=== PATIENT | male | born 1965 | race Caucasian/White ===

== ENCOUNTER 2021-07-07 18:35 | Emergency (ER) | payer MEDICAID, MEDICARE, OTHER ==
[~2021-07-07] VITALS: Ht 170.2 cm; Wt 106.8 kg
[~2021-07-07 18:35] MED LIST: ACIPHEX PO; ASTELIN NASAL; BEXTRA PO; CIALIS PO; CLARINEX PO; CLARITIN10 PO; COGE1INJ PO; COGENTIN PO; COMBIVENT INHALATION; GEOD20CA14; GEOD60CA; HABITROL14 TOPICAL; HABITROL2 TOPICAL; HABITROL21 TOPICAL; HABITROL7 TOPICAL; HALO10TA4 OR; KLON1TAB; LIPITOR20 PO; LIPITOR40 PO; METFORM500 PO; NEURONTIN1 PO; NEURONTIN3 PO; NEXIUM PO; NEXIUM40 PO; NORMSALNS NASAL; PREVACID30 PO; RISP2TAB12 OR; ROBITUSSDM PO; SKELAXIN40 PO; TRAZ50TA OR; TRICOR145 PO; TRICOR48 PO; VALI10TA; VYTORIN40 PO; ZETIA PO; ZOCOR40 PO
[2021-07-07 20:46] LABS: BASO # 0.1 10^3/uL (0.0-0.2); BASO % 0.4 % (0.0-1.0); EOS # 0.1 10^3/uL (0.0-0.5); EOS % 0.8 % (0.0-3.0); HEMATOCRIT 41.6 % (42.0-52.0); LYMPH # 1.5 10^3/uL (1.5-5.0); MEAN CORPUSCULAR HEMOGLOBIN 31.7 pg (27.0-33.0); MEAN CORPUSCULAR HGB CONC 31.3 g/dl (32.0-36.5); MEAN CORPUSCULAR VOLUME 101.5 fl (80.0-96.0); MONO # 0.9 10^3/uL (0.0-0.8); MONO % 6.5 % (2.0-8.0); NEUTROPHILS % 80.8 % (36.0-66.0); PLATELET COUNT, AUTOMATED 265 10^3/uL (150-450); WHITE BLOOD COUNT 13.6 10^3/uL (4.0-10.0)
[2021-07-07 21:24] LABS: ALBUMIN 3.5 GM/DL (3.2-5.2); ALT/SGPT 21 U/L (12-78); BILIRUBIN,DIRECT < 0.1 MG/DL (0.0-0.2); BILIRUBIN,TOTAL 0.3 MG/DL (0.2-1.0); NT-PRO BNP 48 PG/ML (<125); TOTAL PROTEIN 6.9 GM/DL (6.4-8.2)
[2021-07-07] MEDS ORDERED: ISOVUE-370 76% 100ML VIAL As Ordered ONE (21:53)
--- NOTE | 2021-07-07 22:02 | REPVR ---
PROCEDURE INFORMATION: Exam: XR Chest Exam date and time: 07/07/2021 8:42 PM Age: 56 years old Clinical indication: Cough and dyspnea TECHNIQUE: Imaging protocol: XR of the chest. Views: 1 view. COMPARISON: No relevant prior studies available. FINDINGS: Lungs: Unremarkable. No consolidation. No pulmonary edema. Pleural spaces: Unremarkable. No pleural effusion. No pneumothorax. Heart/Mediastinum: Unremarkable. No cardiomegaly. Bones/joints: Unremarkable. IMPRESSION: No acute findings. Electronically signed by: Josh Broussard On 07/07/2021 22:02:24 PM
--- NOTE | 2021-07-07 23:04 | REPVR ---
PROCEDURE INFORMATION: Exam: CTA Chest With Contrast Exam date and time: 07/07/2021 10:25 PM Age: 56 years old Clinical indication: Severe left sided chest pain; Recent COVID; R/O pe TECHNIQUE: Imaging protocol: Computed tomographic angiography of the chest with contrast. 3D rendering (Not supervised by radiologist): MIP and/or 3D reconstructed images were created by the technologist. Radiation optimization: All CT scans at this facility use at least one of these dose optimization techniques: automated exposure control; mA and/or kV adjustment per patient size (includes targeted exams where dose is matched to clinical indication); or iterative reconstruction. Contrast material: ISOVUE 370; Contrast volume: 75 ml; Contrast route: INTRAVENOUS (IV); COMPARISON: CR PORTABLE CHEST X-RAY 07/07/2021 8:32 PM FINDINGS: Limitations: Respiratory motion artifact degrades the image quality. Pulmonary arteries: The pulmonary artery trunk is dilated and measures 3 cm in diameter, which can be seen with pulmonary artery hypertension. There is no pulmonary embolism in the main, lobar, or segmental pulmonary arteries. The timing of the contrast bolus was suboptimal for the assessment of the subsegmental pulmonary arteries, which are poorly opacified. Aorta: The thoracic aorta is intact and patent. There is no thoracic aortic aneurysm, pseudoaneurysm, penetrating atherosclerotic ulcer, intramural hematoma, or dissection. Great vessels off aortic arch: The brachiocephalic artery, imaged proximal portions of the common carotid arteries, imaged proximal portions of the vertebral arteries, and left subclavian artery are intact. No stenosis or occlusion of these vessels is noted. The right subclavian artery is obscured by streak artifact from contrast material in the right subclavian vein. Trachea: Patent. Bronchial tree: Normal. Lungs: There are tree-in-bud opacities in the left upper lobe and both lower lobes. No lobar consolidation or cavitary lesion is noted. Pleural spaces: No pneumothorax or pleural effusion. Heart: No cardiomegaly or pericardial effusion. Mediastinal space: No mediastinal mass, fluid collection, or pneumomediastinum. Lymph nodes: No enlarged lymph nodes. Diaphragm: Intact. Spleen: The spleen is heterogeneous in appearance, which is likely secondary to the arterial timing of the contrast bolus. No splenomegaly. Adrenal glands: Normal. No adrenal mass is noted. Bones/joints: There are chronic appearing mild anterior wedge compression fractures of T2 and T3 without any radiolucent fracture line or retropulsion of the cortex. No suspicious osteolytic or osteoblastic lesion. The bones have a demineralized appearance. Soft tissues: There is severe right and mild left gynecomastia. IMPRESSION: 1. No pulmonary embolism in the main, lobar, or segmental pulmonary arteries. The timing of the contrast bolus was suboptimal for the assessment of the subsegmental pulmonary arteries, which are poorly opacified. 2. Tree-in-bud opacities in the left upper lobe and both lower lobes, which may represent an infectious or aspiration bronchiolitis. 3. Dilation of the pulmonary artery trunk, which may indicate pulmonary artery hypertension. 4. Severe right and mild left gynecomastia. 5. Chronic appearing mild anterior wedge compression fractures of T2 and T3 and a demineralized appearance of the bones. Electronically signed by: Josh Broussard On 07/07/2021 23:04:00 PM
[2021-07-07] MEDS ORDERED: NORCO 5/325MG TABLET (BULK FOR ED) PO ONE (23:15)
[2021-07-07] MEDS ORDERED: AZITHROMYCIN 250MG TABLET PO ONE (23:15)
[2021-07-07] MEDS ORDERED: HYDR-3713 PO (23:25)
[2021-07-07] MEDS ORDERED: AZIT500T5 PO (23:25)
[2021-07-07] MEDS ORDERED: PRED10TA2 PO (23:32)
[2021-07-07] MEDS ORDERED: predniSONE 20 MG TAB PO ONE (23:35)
[2021-07-08] VITALS: BP 120/72
--- NOTE | 2021-07-08 09:50 | ED PDOC ---
Post-Departure Follow-Up dr payne fxed formal report of cta chest for fu Hugo Franco MD Jul 08, 2021 09:50
--- NOTE | 2021-07-08 19:36 | ECGEPIP ---
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
== END 2021-07-08 00:25 | disposition home or self-care (01) ==
LOC: M ED 18:35
DX: J21.9 Acute bronchiolitis, unspecified (principal); R09.1 Pleurisy; N62 Hypertrophy of breast; S22.030A Wedge compression fracture of third thoracic vertebra, initial encounter for closed fracture; S22.020A Wedge compression fracture of second thoracic vertebra, initial encounter for closed fracture; X58.XXXA Exposure to other specified factors, initial encounter; Y92.9 Unspecified place or not applicable; Y93.9 Activity, unspecified; Y99.9 Unspecified external cause status; F20.9 Schizophrenia, unspecified; F43.10 Post-traumatic stress disorder, unspecified; F98.8 Other specified behavioral and emotional disorders with onset usually occurring in childhood and adolescence; F12.10 Cannabis abuse, uncomplicated; R91.8 Other nonspecific abnormal finding of lung field; Z79.899 Other long term (current) drug therapy; Z88.6 Allergy status to analgesic agent; Z88.5 Allergy status to narcotic agent
CPT/HCPCS: 71045; 71275; 80047; 80076; 83880; 84443; 84484; 85025; 93005; 93041; 94760; 99285; J7512; Q9967

== ENCOUNTER 2021-09-27 18:42 | Emergency (ER) | payer OTHER ==
[~2021-09-27] VITALS: Ht 170.2 cm; Wt 92.5 kg
[~2021-09-27 18:42] MED LIST changes: +AZIT500T5 PO; +HYDR-3713 PO; +PRED10TA2 PO
[2021-09-27] MEDS ORDERED: COMBIVENT RESPIMAT 100-20MCG INHALER 4GM INH ONE (19:30)
[2021-09-27] MEDS ORDERED: ONDANSETRON 4MG/2ML VIAL IV ONE (19:30)
[2021-09-27] MEDS ORDERED: ACETAMINOPHEN TAB 650MG DOSE (2X325MG) PO ONE (19:35)
[2021-09-27] MEDS ORDERED: ALPRAZolam 0.5 MG TAB PO ONE (19:35)
[2021-09-27 19:51] LABS: BASO % 0.5 % (0.0-1.0); EOS % 0.2 % (0.0-3.0); HEMATOCRIT 49.3 % (42.0-52.0); HEMOGLOBIN 15.8 g/dl (13.5-17.5); LYMPH # 1.1 10^3/uL (1.5-5.0); LYMPH % 16.2 % (24.0-44.0); MEAN CORPUSCULAR HEMOGLOBIN 30.3 pg (27.0-33.0); MEAN CORPUSCULAR VOLUME 94.4 fl (80.0-96.0); MONO # 0.7 10^3/uL (0.0-0.8); MONO % 10.7 % (2.0-8.0); NEUTROPHILS # 4.7 10^3/uL (1.5-8.5); NEUTROPHILS % 72.1 % (36.0-66.0); PLATELET COUNT, AUTOMATED 243 10^3/uL (150-450); RED BLOOD COUNT 5.22 10^6/uL (4.30-6.10); WHITE BLOOD COUNT 6.6 10^3/uL (4.0-10.0)
[2021-09-27 20:15] LABS: ALBUMIN 3.7 GM/DL (3.2-5.2); ALT/SGPT 31 U/L (12-78); BILIRUBIN,DIRECT < 0.1 MG/DL (0.0-0.2); BILIRUBIN,TOTAL 0.2 MG/DL (0.2-1.0); C REACTIVE PROTEIN QUANTITATIV 3.96 MG/DL (0.00-0.30); LIPASE 65 U/L (73-393); TOTAL PROTEIN 7.8 GM/DL (6.4-8.2)
[2021-09-27 20:17] LABS: CK-MB VALUE MASS 1.3 NG/ML (<3.6); MB/CK RELATIVE INDEX 1.37 (< OR =4)
[2021-09-27 20:19] VITALS: BP 119/65
[2021-09-27] MEDS ORDERED: ISOVUE-370 76% 100ML VIAL As Ordered ONE (20:32)
[2021-09-27] MEDS ORDERED: XANA0.5T PO (21:24)
[2021-09-27] MEDS ORDERED: VENTAER INH (21:24)
[2021-09-27] MEDS ORDERED: BUPR450T PO (21:24)
[2021-09-27] MEDS ORDERED: PRED20TA PO (21:24)
[2021-09-27] MEDS ORDERED: BREO1INH3 PO (21:24)
[2021-09-27] MEDS ORDERED: LUMA42CA PO (21:24)
[2021-09-27] MEDS ORDERED: predniSONE 20 MG TAB PO ONE (21:25)
== END 2021-09-27 21:51 | disposition home or self-care (01) ==
LOC: M ED 18:42
DX: J98.01 Acute bronchospasm (principal); J12.3 Human metapneumovirus pneumonia; F20.9 Schizophrenia, unspecified; F41.9 Anxiety disorder, unspecified; F43.10 Post-traumatic stress disorder, unspecified; F17.200 Nicotine dependence, unspecified, uncomplicated; J43.9 Emphysema, unspecified; K57.30 Diverticulosis of large intestine without perforation or abscess without bleeding; Z88.6 Allergy status to analgesic agent; Z88.5 Allergy status to narcotic agent; Z91.040 Latex allergy status
CPT/HCPCS: 71045; 71275; 74177; 80047; 80076; 82550; 82553; 83605; 83690; 84484; 85025; 86140; 87040; 87077; 87798; 93005; 94640; 96374; 99284; J2405; J7512; Q9967

== ENCOUNTER → 2022-04-07 | Outpatient (CLI) | payer OTHER ==
[~2022-04-07] MED LIST changes: +BREO1INH3 PO; +BUPR450T PO; +LUMA42CA PO; +PRED20TA PO; +VENTAER INH; +XANA0.5T PO
== END ==
LOC: M PLAIMG 14:23
PROVIDERS: ATTEND Internal Medicine Pulmonary Disease
DX: R91.8 Other nonspecific abnormal finding of lung field (principal)

== ENCOUNTER 2022-04-30 07:20 | Emergency (ER) | payer OTHER ==
[~2022-04-30] VITALS: Ht 170.2 cm; Wt 90.1 kg
[2022-04-30 07:21] VITALS: BP 144/73
[2022-04-30] MEDS ORDERED: ROSU20TA5 PO (07:34)
[2022-04-30] MEDS ORDERED: ACETAMINOPHEN 500 MG TAB PO ONE (07:55)
[2022-04-30] MEDS ORDERED: AUGMENTIN 875 MG TAB PO ONE (07:55)
[2022-04-30] MEDS ORDERED: BENZOCAINE 20% GEL 9GM TUBE (ANBESOL MAX STRENGTH) TOP ONE (07:55)
[2022-04-30] MEDS ORDERED: AMOX875T2 PO ×2 (08:05→18:25)
[2022-04-30] MEDS ORDERED: ALPR0.5T3 PO (18:25)
[2022-04-30] MEDS ORDERED: VENTAER INH (18:25)
[2022-04-30] MEDS ORDERED: LATU40TA2 PO (18:25)
[2022-04-30] MEDS ORDERED: BUDE10.7 INH (18:25)
[2022-04-30] MEDS ORDERED: BUPR150T12 PO (18:25)
[2022-04-30] MEDS ORDERED: BELS1TAB3 PO (18:25)
== END 2022-04-30 08:21 | disposition home or self-care (01) ==
LOC: M ED 07:20
DX: K02.9 Dental caries, unspecified (principal); K05.6 Periodontal disease, unspecified; F17.200 Nicotine dependence, unspecified, uncomplicated; Z91.040 Latex allergy status; Z88.5 Allergy status to narcotic agent

== ENCOUNTER 2022-04-30 13:03 | Inpatient (IN) | payer OTHER ==
[~2022-04-30] VITALS: Ht 170.2 cm; Wt 90.2 kg
[~2022-04-30 13:03] MED LIST changes: +AMOX875T2 PO; +ROSU20TA5 PO
[2022-04-30 14:20] LABS: HEMATOCRIT 44.5 % (42.0-52.0); HEMOGLOBIN 14.8 g/dl (13.5-17.5); MEAN CORPUSCULAR HEMOGLOBIN 31.7 pg (27.0-33.0); MEAN CORPUSCULAR HGB CONC 33.3 g/dl (32.0-36.5); MEAN CORPUSCULAR VOLUME 95.3 fl (80.0-96.0); PLATELET COUNT, AUTOMATED 312 10^3/uL (150-450); RED BLOOD COUNT 4.67 10^6/uL (4.30-6.10); WHITE BLOOD COUNT 11.2 10^3/uL (4.0-10.0)
[2022-04-30 14:48] LABS: RSV AMPLIFICATION NEGATIVE (NEGATIVE)
[2022-04-30 15:15] LABS: ACETAMINOPHEN LEVEL < 2.0 UG/ML (10.0-30.0); ALBUMIN 4.1 GM/DL (3.2-5.2); ALT/SGPT 21 U/L (12-78); BILIRUBIN,DIRECT 0.2 MG/DL (0.0-0.2); BILIRUBIN,TOTAL 0.5 MG/DL (0.2-1.0); BLOOD UREA NITROGEN 19 MG/DL (7-18); CARBON DIOXIDE LEVEL 27 MEQ/L (21-32); CHLORIDE LEVEL 103 MEQ/L (98-107); CREATININE FOR GFR 0.98 MG/DL (0.70-1.30); ETHYL ALCOHOL (ETHANOL) < 0.003 % (0.000-0.010); GLOMERULAR FILTRATION RATE > 60.0 (>56); GLUCOSE, FASTING 100 MG/DL (70-100); POTASSIUM SERUM 4.5 MEQ/L (3.5-5.1); SALICYLATE LEVEL 2.1 MG/DL (5.0-30.0); SODIUM LEVEL 136 MEQ/L (136-145)
[2022-04-30] MEDS ORDERED: ACETAMINOPHEN TAB 650MG DOSE (2X325MG) PO ONE (15:30)
[2022-04-30 15:46] LABS: AMPHETAMINES LEVEL URINE NEGATIVE (NEGATIVE); BARBITURATES URINE NEGATIVE (NEGATIVE); BENZODIAZEPINES URINE POSITIVE (NEGATIVE); CANNABINOIDS URINE POSITIVE (NEGATIVE); COCAINE METABOLITE URINE NEGATIVE (NEGATIVE); METHADONE URINE NEGATIVE (NEGATIVE); OPIATES URINE NEGATIVE (NEGATIVE); PHENCYCLIDINE URINE NEGATIVE (NEGATIVE)
[2022-04-30] MEDS ORDERED: MOM 30ML SUSPENSION UDC PO PRN (17:05)
[2022-04-30] MEDS ORDERED: MAALOX 30 ML SUSP *UDC PO PRN (17:05)
[2022-04-30] MEDS ORDERED: risperiDONE 1 MG TAB PO PRN (17:05)
[2022-04-30] MEDS ORDERED: BELS1TAB3 PO (18:25)
[2022-04-30] MEDS ORDERED: ALPR0.5T3 PO (18:25)
[2022-04-30] MEDS ORDERED: VENTAER INH (18:25)
[2022-04-30] MEDS ORDERED: BUPR150T12 PO (18:25)
[2022-04-30] MEDS ORDERED: AMOX875T2 PO (18:25)
[2022-04-30] MEDS ORDERED: BUDE10.7 INH (18:25)
[2022-04-30] MEDS ORDERED: LATU40TA2 PO (18:25)
[2022-04-30] MEDS ORDERED: HOME MED LIST COMPLETE! XX SCH (18:25)
[2022-04-30 18:40] VITALS: BP 147/96
[2022-04-30] MEDS: PALIPERIDONE 3 MG ER TAB (INVEGA) PO SCH (21:58)
[2022-05-01 06:30] VITALS: BP 130/72
[2022-05-01] MEDS: SYMBICORT 160/4.5MCG INHALER 6GM INH SCH ×2 (12:40→20:41)
[2022-05-01] MEDS ORDERED: ALBUTEROL 90 MCG/ACT 8GM HFA INHALER INH PRN (12:40)
[2022-05-01] MEDS: ROSUVASTATIN 10 MG TAB (CRESTOR) PO SCH (14:22)
[2022-05-01] MEDS: TIOTROPIUM INHALER/CAPSULE (SPIRIVA) INH SCH (16:10)
[2022-05-01] MEDS: AUGMENTIN 875 MG TAB PO SCH ×2 (16:10→20:40)
[2022-05-01] MEDS: ACETAMINOPHEN TAB 650MG DOSE (2X325MG) PO PRN (17:29)
[2022-05-01 18:00] VITALS: BP 99/65
[2022-05-01] MEDS: diphenhydrAMINE 50MG CAP PO PRN (20:40)
[2022-05-01] MEDS: PALIPERIDONE 3 MG ER TAB (INVEGA) PO SCH (20:40)
[2022-05-02 06:10] VITALS: BP 118/67
[2022-05-02] MEDS: SYMBICORT 160/4.5MCG INHALER 6GM INH SCH ×2 (08:38→20:57)
[2022-05-02] MEDS: AUGMENTIN 875 MG TAB PO SCH ×2 (08:39→20:56)
[2022-05-02] MEDS: TIOTROPIUM INHALER/CAPSULE (SPIRIVA) INH SCH (08:39)
[2022-05-02] MEDS: ROSUVASTATIN 10 MG TAB (CRESTOR) PO SCH (08:41)
[2022-05-02] MEDS: ACETAMINOPHEN TAB 650MG DOSE (2X325MG) PO PRN ×2 (10:15→20:57)
[2022-05-02] MEDS: GABAPENTIN 100 MG CAP PO SCH ×2 (15:35→20:56)
[2022-05-02 18:22] VITALS: BP 123/67
[2022-05-02] MEDS: PALIPERIDONE 3 MG ER TAB (INVEGA) PO SCH (20:56)
[2022-05-02] MEDS: diphenhydrAMINE 50MG CAP PO PRN (22:25)
[2022-05-03 06:07] VITALS: BP 106/60
[2022-05-03] MEDS: TIOTROPIUM INHALER/CAPSULE (SPIRIVA) INH SCH (07:43)
[2022-05-03] MEDS: GABAPENTIN 100 MG CAP PO SCH ×3 (07:43→20:29)
[2022-05-03] MEDS: SYMBICORT 160/4.5MCG INHALER 6GM INH SCH ×2 (07:43→20:28)
[2022-05-03] MEDS: AUGMENTIN 875 MG TAB PO SCH ×2 (07:44→20:29)
[2022-05-03] MEDS: ROSUVASTATIN 10 MG TAB (CRESTOR) PO SCH (07:44)
[2022-05-03 16:11] VITALS: BP 120/59
[2022-05-03] MEDS: ACETAMINOPHEN TAB 650MG DOSE (2X325MG) PO PRN (19:44)
[2022-05-03] MEDS: PALIPERIDONE 3 MG ER TAB (INVEGA) PO SCH (20:30)
[2022-05-03] MEDS: diphenhydrAMINE 50MG CAP PO PRN (22:55)
[2022-05-04 06:36] VITALS: BP 118/76
[2022-05-04] MEDS: ACETAMINOPHEN TAB 650MG DOSE (2X325MG) PO PRN ×2 (06:51→19:24)
[2022-05-04] MEDS: SYMBICORT 160/4.5MCG INHALER 6GM INH SCH ×2 (07:37→21:11)
[2022-05-04] MEDS: TIOTROPIUM INHALER/CAPSULE (SPIRIVA) INH SCH (07:38)
[2022-05-04] MEDS: ROSUVASTATIN 10 MG TAB (CRESTOR) PO SCH (07:41)
[2022-05-04] MEDS: GABAPENTIN 100 MG CAP PO SCH ×3 (07:41→21:09)
[2022-05-04] MEDS: AUGMENTIN 875 MG TAB PO SCH ×2 (07:41→21:09)
[2022-05-04 08:22] LABS: HEMOGLOBIN A1c 6.1 %
[2022-05-04 08:38] LABS: CHOLESTEROL RISK RATIO 3.659 (<5)
[2022-05-04 16:13] VITALS: BP 120/60
[2022-05-04] MEDS: PALIPERIDONE 3 MG ER TAB (INVEGA) PO SCH (21:09)
[2022-05-04] MEDS: diphenhydrAMINE 50MG CAP PO PRN (22:58)
[2022-05-05 06:26] VITALS: BP 125/65
[2022-05-05] MEDS: ALPRAZolam 0.5 MG TAB PO PRN (06:58)
[2022-05-05] MEDS: SYMBICORT 160/4.5MCG INHALER 6GM INH SCH ×2 (07:37→21:31)
[2022-05-05] MEDS: TIOTROPIUM INHALER/CAPSULE (SPIRIVA) INH SCH (07:37)
[2022-05-05] MEDS: ROSUVASTATIN 10 MG TAB (CRESTOR) PO SCH (07:37)
[2022-05-05] MEDS: AUGMENTIN 875 MG TAB PO SCH ×2 (07:37→21:31)
[2022-05-05] MEDS: GABAPENTIN 100 MG CAP PO SCH ×3 (07:37→21:31)
[2022-05-05] MEDS ORDERED: PALIPERIDONE PAL 234MG/1.5ML INJ (INVEGA)(FREE PSY INPT ONLY) IM ONE (12:00)
[2022-05-05 16:31] VITALS: BP 115/77
[2022-05-05] MEDS: PALIPERIDONE 3 MG ER TAB (INVEGA) PO SCH (21:31)
[2022-05-06 06:00] VITALS: BP 135/96
[2022-05-06] MEDS: ALPRAZolam 0.5 MG TAB PO PRN (07:11)
[2022-05-06] MEDS ORDERED: AMOX875T2 PO (08:37)
[2022-05-06] MEDS ORDERED: VENTAER INH (08:37)
[2022-05-06] MEDS ORDERED: ALPR0.5T3 PO (08:37)
[2022-05-06] MEDS ORDERED: INVE156I IM (08:37)
[2022-05-06] MEDS ORDERED: GABA-1171 PO (08:37)
[2022-05-06] MEDS ORDERED: PALI1TAB2 PO (08:37)
[2022-05-06] MEDS: SYMBICORT 160/4.5MCG INHALER 6GM INH SCH (08:54)
[2022-05-06] MEDS: AUGMENTIN 875 MG TAB PO SCH (08:54)
[2022-05-06] MEDS: ROSUVASTATIN 10 MG TAB (CRESTOR) PO SCH (08:54)
[2022-05-06] MEDS: TIOTROPIUM INHALER/CAPSULE (SPIRIVA) INH SCH (08:54)
[2022-05-06] MEDS: GABAPENTIN 100 MG CAP PO SCH (08:54)
[2022-05-06] MEDS: ACETAMINOPHEN TAB 650MG DOSE (2X325MG) PO PRN (09:17)
[2022-05-07] MEDS ORDERED: PALIPERIDONE PAL 234MG/1.5ML INJ (INVEGA)(FREE PSY INPT ONLY) IM ONE (09:00)
[2022-05-07] MEDS ORDERED: ALPR0.5T3 PO (21:09)
[2022-05-07] MEDS ORDERED: AMOX875T2 PO (21:09)
[2022-05-07] MEDS ORDERED: PALI1TAB2 PO (21:12)
[2022-05-07] MEDS ORDERED: GABA-1171 PO (21:12)
[2022-05-07] MEDS ORDERED: MED REC COMMENT (21:14)
== END 2022-05-06 10:58 | disposition home or self-care (01) | DRG 885 ==
LOC: M ED 13:03 → M ED INP 17:01 → M PSY 18:36
PROVIDERS: ADMIT Psychiatry & Neurology Psychiatry; ATTEND Psychiatry & Neurology Psychiatry
PROC: 8E0ZXY6 Isolation (ICD-10-PCS; principal; 2022-04-30)
DX: F25.9 Schizoaffective disorder, unspecified (principal); U07.1 COVID-19; J96.11 Chronic respiratory failure with hypoxia; R45.851 Suicidal ideations; M51.36 Other intervertebral disc degeneration, lumbar region; M51.26 Other intervertebral disc displacement, lumbar region; J44.9 Chronic obstructive pulmonary disease, unspecified; E78.5 Hyperlipidemia, unspecified; F41.9 Anxiety disorder, unspecified; F43.10 Post-traumatic stress disorder, unspecified; F90.9 Attention-deficit hyperactivity disorder, unspecified type; Z90.49 Acquired absence of other specified parts of digestive tract; F17.200 Nicotine dependence, unspecified, uncomplicated; Z79.2 Long term (current) use of antibiotics; Z79.899 Other long term (current) drug therapy; Z88.5 Allergy status to narcotic agent; Z88.8 Allergy status to other drugs, medicaments and biological substances; Z91.040 Latex allergy status; Z91.51 Personal history of suicidal behavior; L60.0 Ingrowing nail; Z86.16 Personal history of COVID-19; K02.9 Dental caries, unspecified; Z99.81 Dependence on supplemental oxygen

== ENCOUNTER 2022-05-07 17:31 | Inpatient (IN) | payer MEDICAID, OTHER ==
[~2022-05-07] VITALS: Ht 170.2 cm; Wt 93.2 kg
[~2022-05-07 17:31] MED LIST changes: +ALPR0.5T3 PO; +BELS1TAB3 PO; +BUDE10.7 INH; +BUPR150T12 PO; +GABA-1171 PO; +INVE156I IM; +LATU40TA2 PO; +PALI1TAB2 PO
[2022-05-07 18:32] LABS: HEMATOCRIT 41.1 % (42.0-52.0); HEMOGLOBIN 13.1 g/dl (13.5-17.5); MEAN CORPUSCULAR HEMOGLOBIN 30.8 pg (27.0-33.0); MEAN CORPUSCULAR HGB CONC 31.9 g/dl (32.0-36.5); MEAN CORPUSCULAR VOLUME 96.7 fl (80.0-96.0); PLATELET COUNT, AUTOMATED 276 10^3/uL (150-450); RED BLOOD COUNT 4.25 10^6/uL (4.30-6.10); WHITE BLOOD COUNT 10.1 10^3/uL (4.0-10.0)
[2022-05-07 19:05] LABS: RSV AMPLIFICATION NEGATIVE (NEGATIVE)
[2022-05-07 19:16] LABS: ACETAMINOPHEN LEVEL < 2.0 UG/ML (10.0-30.0); ALBUMIN 3.7 GM/DL (3.2-5.2); ALT/SGPT 36 U/L (12-78); BILIRUBIN,DIRECT < 0.1 MG/DL (0.0-0.2); BILIRUBIN,TOTAL 0.2 MG/DL (0.2-1.0); BLOOD UREA NITROGEN 18 MG/DL (7-18); CALCIUM LEVEL 8.8 MG/DL (8.5-10.1); CARBON DIOXIDE LEVEL 29 MEQ/L (21-32); CHLORIDE LEVEL 103 MEQ/L (98-107); CREATININE FOR GFR 0.83 MG/DL (0.70-1.30); ETHYL ALCOHOL (ETHANOL) < 0.003 % (0.000-0.010); GLOMERULAR FILTRATION RATE > 60.0 (>56); GLUCOSE, FASTING 99 MG/DL (70-100); POTASSIUM SERUM 4.1 MEQ/L (3.5-5.1); SALICYLATE LEVEL < 1.7 MG/DL (5.0-30.0); SODIUM LEVEL 136 MEQ/L (136-145); TOTAL PROTEIN 7.5 GM/DL (6.4-8.2)
[2022-05-07] MEDS ORDERED: ALPR0.5T3 PO (21:09)
[2022-05-07] MEDS ORDERED: AMOX875T2 PO (21:09)
[2022-05-07] MEDS ORDERED: ALPRAZolam 0.5 MG TAB PO ONE (21:10)
[2022-05-07] MEDS ORDERED: PALI1TAB2 PO (21:12)
[2022-05-07] MEDS ORDERED: GABA-1171 PO (21:12)
[2022-05-07] MEDS ORDERED: MED REC COMMENT (21:14)
[2022-05-07] MEDS ORDERED: HOME MED LIST COMPLETE! XX SCH (21:15)
[2022-05-07] MEDS ORDERED: ALBUTEROL 90 MCG/ACT 8GM HFA INHALER INH PRN (22:05)
[2022-05-07] MEDS ORDERED: MAALOX 30 ML SUSP *UDC PO PRN (22:05)
[2022-05-07] MEDS ORDERED: MOM 30ML SUSPENSION UDC PO PRN (22:05)
[2022-05-07 22:10] LABS: AMPHETAMINES LEVEL URINE NEGATIVE (NEGATIVE); BARBITURATES URINE NEGATIVE (NEGATIVE); BENZODIAZEPINES URINE POSITIVE (NEGATIVE); CANNABINOIDS URINE POSITIVE (NEGATIVE); COCAINE METABOLITE URINE NEGATIVE (NEGATIVE); METHADONE URINE NEGATIVE (NEGATIVE); OPIATES URINE NEGATIVE (NEGATIVE); PHENCYCLIDINE URINE NEGATIVE (NEGATIVE)
[2022-05-07] MEDS: AUGMENTIN 875 MG TAB PO SCH (23:20)
[2022-05-08] MEDS: PALIPERIDONE 3 MG ER TAB (INVEGA) PO SCH ×2 (00:04→21:19)
[2022-05-08 00:19] VITALS: BP 147/82
[2022-05-08] MEDS: diphenhydrAMINE 50MG CAP PO PRN (00:47)
[2022-05-08 06:38] VITALS: BP 107/63
[2022-05-08] MEDS: AUGMENTIN 875 MG TAB PO SCH ×2 (08:54→21:19)
[2022-05-08] MEDS: GABAPENTIN 100 MG CAP PO SCH ×3 (08:54→21:19)
[2022-05-08] MEDS: ROSUVASTATIN 10 MG TAB (CRESTOR) PO SCH (08:54)
[2022-05-08] MEDS: ALPRAZolam 0.5 MG TAB PO PRN (09:49)
[2022-05-08 16:30] VITALS: BP 134/77
[2022-05-08] MEDS: OLANZapine ORAL DISINTEGRATING TAB 5MG PO PRN (18:11)
[2022-05-08] MEDS: SYMBICORT 160/4.5MCG INHALER 6GM INH SCH (21:18)
[2022-05-09 06:49] VITALS: BP 131/64
[2022-05-09] MEDS: SYMBICORT 160/4.5MCG INHALER 6GM INH SCH ×2 (08:49→21:25)
[2022-05-09] MEDS: TIOTROPIUM INHALER/CAPSULE (SPIRIVA) INH SCH (08:49)
[2022-05-09] MEDS: GABAPENTIN 100 MG CAP PO SCH ×3 (08:50→21:22)
[2022-05-09] MEDS: AUGMENTIN 875 MG TAB PO SCH ×2 (08:50→21:22)
[2022-05-09] MEDS: ROSUVASTATIN 10 MG TAB (CRESTOR) PO SCH (08:50)
[2022-05-09] MEDS: ACETAMINOPHEN TAB 650MG DOSE (2X325MG) PO PRN (08:54)
[2022-05-09] MEDS: ALPRAZolam 0.5 MG TAB PO PRN (08:54)
[2022-05-09 16:12] VITALS: BP 162/83
[2022-05-09] MEDS: PALIPERIDONE 3 MG ER TAB (INVEGA) PO SCH (21:22)
[2022-05-10] MEDS: ALPRAZolam 0.5 MG TAB PO PRN (04:02)
[2022-05-10] MEDS: OLANZapine ORAL DISINTEGRATING TAB 5MG PO PRN ×3 (05:31→21:16)
[2022-05-10 07:00] VITALS: BP 120/73
[2022-05-10] MEDS: AUGMENTIN 875 MG TAB PO SCH ×2 (10:16→21:16)
[2022-05-10] MEDS: SYMBICORT 160/4.5MCG INHALER 6GM INH SCH ×2 (10:17→21:17)
[2022-05-10] MEDS: ROSUVASTATIN 10 MG TAB (CRESTOR) PO SCH (10:17)
[2022-05-10] MEDS: GABAPENTIN 100 MG CAP PO SCH ×3 (10:17→21:16)
[2022-05-10] MEDS: TIOTROPIUM INHALER/CAPSULE (SPIRIVA) INH SCH (10:17)
[2022-05-10] MEDS: PALIPERIDONE 3 MG ER TAB (INVEGA) PO SCH (21:16)
[2022-05-11 06:57] VITALS: BP 111/56
[2022-05-11] MEDS: GABAPENTIN 100 MG CAP PO SCH ×3 (08:54→20:58)
[2022-05-11] MEDS: TIOTROPIUM INHALER/CAPSULE (SPIRIVA) INH SCH (08:54)
[2022-05-11] MEDS: SYMBICORT 160/4.5MCG INHALER 6GM INH SCH ×2 (08:54→20:58)
[2022-05-11] MEDS: ROSUVASTATIN 10 MG TAB (CRESTOR) PO SCH (08:54)
[2022-05-11] MEDS: AUGMENTIN 875 MG TAB PO SCH ×2 (08:54→20:58)
[2022-05-11] MEDS ORDERED: PALIPERIDONE PAL 156MG/1ML INJ(INVEGA)(FREE PSY INPT ONLY) IM SCH (09:00)
[2022-05-11] MEDS: ALPRAZolam 0.5 MG TAB PO PRN (10:19)
[2022-05-11 18:05] VITALS: BP 113/67
[2022-05-11] MEDS: OLANZapine ORAL DISINTEGRATING TAB 5MG PO PRN (20:59)
[2022-05-11] MEDS: PALIPERIDONE 3 MG ER TAB (INVEGA) PO SCH (20:59)
[2022-05-11] MEDS: diphenhydrAMINE 50MG CAP PO PRN (22:42)
[2022-05-12 00:39] VITALS: BP 133/85
[2022-05-12 06:09] VITALS: BP 109/68
[2022-05-12] MEDS: OLANZapine ORAL DISINTEGRATING TAB 5MG PO PRN (06:45)
[2022-05-12] MEDS: SYMBICORT 160/4.5MCG INHALER 6GM INH SCH ×2 (08:10→20:41)
[2022-05-12] MEDS: TIOTROPIUM INHALER/CAPSULE (SPIRIVA) INH SCH (08:11)
[2022-05-12] MEDS: GABAPENTIN 100 MG CAP PO SCH ×3 (08:12→20:41)
[2022-05-12] MEDS: ROSUVASTATIN 10 MG TAB (CRESTOR) PO SCH (08:12)
[2022-05-12] MEDS: AUGMENTIN 875 MG TAB PO SCH ×2 (08:12→20:41)
[2022-05-12 18:06] VITALS: BP 108/56
[2022-05-12] MEDS: ACETAMINOPHEN TAB 650MG DOSE (2X325MG) PO PRN (18:24)
[2022-05-12] MEDS: PALIPERIDONE 3 MG ER TAB (INVEGA) PO SCH (20:42)
[2022-05-12] MEDS: diphenhydrAMINE 50MG CAP PO PRN (21:00)
[2022-05-13 06:25] VITALS: BP 111/67
[2022-05-13] MEDS: SYMBICORT 160/4.5MCG INHALER 6GM INH SCH (07:34)
[2022-05-13] MEDS: TIOTROPIUM INHALER/CAPSULE (SPIRIVA) INH SCH (07:34)
[2022-05-13] MEDS: ROSUVASTATIN 10 MG TAB (CRESTOR) PO SCH (08:28)
[2022-05-13] MEDS: AUGMENTIN 875 MG TAB PO SCH (08:28)
[2022-05-13] MEDS: GABAPENTIN 100 MG CAP PO SCH (08:29)
[2022-05-13] MEDS: ACETAMINOPHEN TAB 650MG DOSE (2X325MG) PO PRN (08:30)
[2022-05-13] MEDS ORDERED: INVE234I IM (10:00)
[2022-05-14] MEDS ORDERED: PALIPERIDONE PAL 156MG/1ML INJ(INVEGA)(FREE PSY INPT ONLY) IM SCH (09:00)
== END 2022-05-13 12:30 | disposition home or self-care (01) | DRG 885 ==
LOC: M ED 17:31 → M ED INP 22:05 → M PSY 22:05
PROVIDERS: ADMIT Psychiatry & Neurology Psychiatry; ATTEND Psychiatry & Neurology Psychiatry
PROC: 8E0ZXY6 Isolation (ICD-10-PCS; principal; 2022-05-07)
DX: F25.9 Schizoaffective disorder, unspecified (principal); U07.1 COVID-19; R45.851 Suicidal ideations; J96.11 Chronic respiratory failure with hypoxia; F60.3 Borderline personality disorder; Z91.51 Personal history of suicidal behavior; Z20.822 Contact with and (suspected) exposure to COVID-19; J44.9 Chronic obstructive pulmonary disease, unspecified; Z99.81 Dependence on supplemental oxygen; E78.5 Hyperlipidemia, unspecified; M51.16 Intervertebral disc disorders with radiculopathy, lumbar region; F17.210 Nicotine dependence, cigarettes, uncomplicated; K02.9 Dental caries, unspecified; Z79.2 Long term (current) use of antibiotics; Z79.899 Other long term (current) drug therapy; Z88.5 Allergy status to narcotic agent; Z88.8 Allergy status to other drugs, medicaments and biological substances; Z91.040 Latex allergy status; Z88.6 Allergy status to analgesic agent

== ENCOUNTER 2022-05-19 13:22 | Emergency (ER) | payer OTHER ==
[~2022-05-19] VITALS: Ht 170.2 cm; Wt 95.5 kg
[~2022-05-19 13:22] MED LIST changes: +INVE234I IM; +MED REC COMMENT
[2022-05-19 14:28] LABS: BASO # 0.1 10^3/uL (0.0-0.2); BASO % 0.5 % (0.0-1.0); EOS # 0.2 10^3/uL (0.0-0.5); EOS % 1.6 % (0.0-3.0); HEMATOCRIT 40.2 % (42.0-52.0); HEMOGLOBIN 12.5 g/dl (13.5-17.5); LYMPH # 0.9 10^3/uL (1.5-5.0); LYMPH % 9.5 % (24.0-44.0); MEAN CORPUSCULAR HEMOGLOBIN 30.9 pg (27.0-33.0); MEAN CORPUSCULAR HGB CONC 31.1 g/dl (32.0-36.5); MEAN CORPUSCULAR VOLUME 99.5 fl (80.0-96.0); MONO # 0.6 10^3/uL (0.0-0.8); NEUTROPHILS # 7.5 10^3/uL (1.5-8.5); NEUTROPHILS % 81.9 % (36.0-66.0); PLATELET COUNT, AUTOMATED 259 10^3/uL (150-450); RED BLOOD COUNT 4.04 10^6/uL (4.30-6.10); WHITE BLOOD COUNT 9.2 10^3/uL (4.0-10.0)
[2022-05-19 14:56] LABS: PARTIAL THROMBOPLASTIN TIME 25.1 SECONDS (24.8-34.2)
[2022-05-19 15:30] VITALS: BP 110/70
[2022-05-19 15:31] LABS: BLOOD UREA NITROGEN 21 MG/DL (7-18); CALCIUM LEVEL 8.5 MG/DL (8.5-10.1); CARBON DIOXIDE LEVEL 34 MEQ/L (21-32); CHLORIDE LEVEL 102 MEQ/L (98-107); GLOMERULAR FILTRATION RATE > 60.0 (>56); GLUCOSE, FASTING 153 MG/DL (70-100); POTASSIUM SERUM 4.5 MEQ/L (3.5-5.1); SODIUM LEVEL 140 MEQ/L (136-145)
[2022-05-19 15:41] LABS: INR 0.97
[2022-05-19] MEDS ORDERED: NS 500 ML IV ONE (16:10)
== END 2022-05-19 16:36 | disposition home or self-care (01) ==
LOC: M ED 13:22
DX: R42 Dizziness and giddiness (principal); Z53.9 Procedure and treatment not carried out, unspecified reason; Z79.899 Other long term (current) drug therapy; Z88.6 Allergy status to analgesic agent; Z88.5 Allergy status to narcotic agent; Z91.040 Latex allergy status

== ENCOUNTER → 2022-07-26 | Outpatient (REF) | payer OTHER, MEDICAID ==
[2022-07-26 12:18] LABS: BASO # 0.1 10^3/uL (0.0-0.2); BASO % 0.7 % (0.0-1.0); EOS # 0.1 10^3/uL (0.0-0.5); EOS % 1.6 % (0.0-3.0); HEMATOCRIT 43.8 % (42.0-52.0); HEMOGLOBIN 13.7 g/dl (13.5-17.5); LYMPH % 23.8 % (24.0-44.0); MEAN CORPUSCULAR HEMOGLOBIN 30.4 pg (27.0-33.0); MEAN CORPUSCULAR HGB CONC 31.3 g/dl (32.0-36.5); MEAN CORPUSCULAR VOLUME 97.3 fl (80.0-96.0); MONO # 0.5 10^3/uL (0.0-0.8); MONO % 6.6 % (2.0-8.0); NEUTROPHILS # 5.5 10^3/uL (1.5-8.5); NEUTROPHILS % 66.7 % (36.0-66.0); PLATELET COUNT, AUTOMATED 271 10^3/uL (150-450); WHITE BLOOD COUNT 8.2 10^3/uL (4.0-10.0)
[2022-07-26 12:54] LABS: ALBUMIN 3.6 G/DL (3.2-5.2); ALKALINE PHOSPHATASE 70 U/L (46-116); ALT/SGPT 26 U/L (7.0-40); AST/SGOT 20 U/L (<34); BILIRUBIN,TOTAL 0.3 MG/DL (0.3-1.2); BLOOD UREA NITROGEN 25 MG/DL (9-23); CALCIUM LEVEL 8.7 MG/DL (8.5-10.1); CARBON DIOXIDE LEVEL 31 MMOL/L (20-31); CHLORIDE LEVEL 102 MMOL/L (98-107); CHOLESTEROL LEVEL 171 MG/DL (<200); CHOLESTEROL RISK RATIO 3.86 (<5); CREATININE FOR GFR 0.78 MG/DL (0.70-1.30); GLOMERULAR FILTRATION RATE > 60.0 (>56); GLUCOSE, FASTING 111 MG/DL (60-100); HDL CHOLESTEROL 44.2 MG/DL (>40); LDL CHOLESTEROL 113.4 MG/DL (<100); NON-HDL-C 127 MG/DL; POTASSIUM SERUM 4.8 MMOL/L (3.5-5.1); SODIUM LEVEL 137 MMOL/L (136-145); THYROID STIMULATING HORMONE 1.905 uIU/ML (0.55-4.78); TOTAL PROTEIN 7.2 G/DL (5.7-8.2); TRIGLYCERIDES LEVEL 67 MG/DL (<150)
[2022-07-26 12:55] LABS: FREE T4 1.04 NG/DL (0.89-1.76)
[2022-07-26 13:22] LABS: HEMOGLOBIN A1c 5.7 % (4.0-6.0)
== END ==
LOC: M LAB REF 11:44
PROVIDERS: ATTEND Nurse Practitioner Family
DX: Z13.228 Encounter for screening for other metabolic disorders (principal)

== ENCOUNTER → 2023-01-12 | Outpatient (REF) | payer OTHER, MEDICAID ==
[~2023-01-12] MED LIST changes: -ROSU20TA5 PO; +ROSU20TA61 PO
[2023-01-12 17:37] LABS: AMORPHOUS SEDIMENT SMALL (NEGATIVE); APPEARANCE, URINE CLOUDY (CLEAR); BACTERIA, URINE AUTO NEGATIVE (NEGATIVE); BILIRUBIN, URINE AUTO NEGATIVE (NEGATIVE); BLOOD, URINE BLOOD NEGATIVE (NEGATIVE); COLOR, URINE AMBER (YELLOW); GLUCOSE, URINE (UA) AUTO NEGATIVE (NEGATIVE); KETONE, URINE AUTO TRACE mg/dL (NEGATIVE); LEUKOCYTE ESTERASE, URINE AUTO NEGATIVE (NEGATIVE); MUCUS, URINE SMALL (NEGATIVE); NITRITE, URINE AUTO NEGATIVE (NEGATIVE); PROTEIN, URINE AUTO NEGATIVE (NEGATIVE); RBC, URINE AUTO 0 /HPF (0-3); SPECIFIC GRAVITY URINE AUTO 1.024 (1.002-1.035); SQUAMOUS EPITHELIAL CELL UR AU 0 /HPF (0-6); WBC, URINE AUTO 1 /HPF (0-3)
== END ==
LOC: M LAB REF 16:58
PROVIDERS: ATTEND Nurse Practitioner Family
DX: R33.9 Retention of urine, unspecified (principal)

== ENCOUNTER → 2023-07-22 | Outpatient (CLI) | payer OTHER, MEDICAID | LOC: M RAD 12:23 | PROVIDERS: ATTEND Family Medicine Addiction Medicine | DX: N50.89 Other specified disorders of the male genital organs (principal) ==

== ENCOUNTER → 2023-09-19 | Outpatient (REF) | payer OTHER, MEDICAID ==
[2023-09-19 13:23] LABS: ALBUMIN 3.5 G/DL (3.2-5.2); ALKALINE PHOSPHATASE 79 U/L (46-116); ALT/SGPT 24 U/L (7.0-40); AST/SGOT 13 U/L (<34); BILIRUBIN,TOTAL 0.3 MG/DL (0.3-1.2); BLOOD UREA NITROGEN 19 MG/DL (9-23); CALCIUM LEVEL 8.8 MG/DL (8.5-10.1); CARBON DIOXIDE LEVEL 34 MMOL/L (20-31); CHLORIDE LEVEL 101 MMOL/L (98-107); CHOLESTEROL LEVEL 251 MG/DL (<200); CHOLESTEROL RISK RATIO 4.63 (<5); CREATININE FOR GFR 0.79 MG/DL (0.70-1.30); GLOMERULAR FILTRATION RATE > 60.0 (>56); GLUCOSE, FASTING 144 MG/DL (60-100); HDL CHOLESTEROL 54.1 MG/DL (>40); LDL CHOLESTEROL 165.9 MG/DL (<100); NON-HDL-C 196.9 MG/DL; POTASSIUM SERUM 4.5 MMOL/L (3.5-5.1); PSA SCREENING 1.28 NG/ML (< 4.00); SODIUM LEVEL 139 MMOL/L (136-145); TOTAL PROTEIN 6.9 G/DL (5.7-8.2); TRIGLYCERIDES LEVEL 155 MG/DL (<150)
[2023-09-19 13:26] LABS: THYROID STIMULATING HORMONE 3.894 uIU/ML (0.55-4.78)
== END ==
LOC: M LAB REF 10:49
PROVIDERS: ATTEND Family Medicine Addiction Medicine
DX: R39.9 Unspecified symptoms and signs involving the genitourinary system (principal); E78.5 Hyperlipidemia, unspecified; Z12.5 Encounter for screening for malignant neoplasm of prostate
CPT/HCPCS: 80053; 80061; 84443; G0103

== ENCOUNTER 2024-01-10 13:23 | Outpatient (RCR) | payer MEDICAID, OTHER ==
[~2024-01-10 13:23] MED LIST changes: -BUPR450T PO; +BUPR450T4 PO
== END 2024-02-08 ==
LOC: M PT 13:23
PROVIDERS: ATTEND Nurse Practitioner Family
DX: Z74.2 Need for assistance at home and no other household member able to render care (principal)

== ENCOUNTER → 2024-01-11 | Outpatient (REF) | payer OTHER | LOC: M LAB REF 13:01 | PROVIDERS: ATTEND Nurse Practitioner Family | DX: R39.9 Unspecified symptoms and signs involving the genitourinary system (principal) ==

== ENCOUNTER 2024-03-09 04:24 | Inpatient (IN) | payer OTHER ==
[~2024-03-09] VITALS: Ht 170.2 cm; Wt 113.2 kg
[2024-03-09] MEDS: MAG SULF 1GM/100ML (MAG RUN) 1 GM in IV 1 EA IV SCH (04:55)
[2024-03-09] MEDS: IPRATROPIUM 0.02% SOLN 0.5MG 2.5ML NEB NEB ONE (05:07)
[2024-03-09] MEDS: LEVALBUTEROL 1.25MG 0.5ML CONCENTRATE NEB NEB ONE ×3 (05:07→05:08)
[2024-03-09 05:11] LABS: BASO # 0.1 10^3/uL (0.0-0.2); BASO % 0.4 % (0.0-1.0); EOS # 0.1 10^3/uL (0.0-0.5); EOS % 1.2 % (0.0-3.0); HEMATOCRIT 42.8 % (42.0-52.0); HEMOGLOBIN 13.2 g/dl (13.5-17.5); LYMPH # 0.7 10^3/uL (1.5-5.0); LYMPH % 6.2 % (24.0-44.0); MEAN CORPUSCULAR HEMOGLOBIN 31.2 pg (27.0-33.0); MEAN CORPUSCULAR HGB CONC 30.8 g/dl (32.0-36.5); MEAN CORPUSCULAR VOLUME 101.2 fl (80.0-96.0); MONO # 0.6 10^3/uL (0.0-0.8); MONO % 5.3 % (2.0-8.0); NEUTROPHILS # 10.3 10^3/uL (1.5-8.5); NEUTROPHILS % 86.2 % (36.0-66.0); PLATELET COUNT, AUTOMATED 225 10^3/uL (150-450); RED BLOOD COUNT 4.23 10^6/uL (4.30-6.10)
[2024-03-09 05:12] LABS: ABG BASE EXCESS 4.2 (-2.0-2.0); ABG HCO3 31.5 MMOL/L (22.0-26.0); ABG O2 SATURATION 91.9 % (95.0-99.0); ABG PARTIAL PRESSURE CO2 58.6 mmHg (35.0-45.0); ABG PARTIAL PRESSURE O2 61.5 mmHg (75.0-100.0); ABG STANDARD HCO3 28.1 MMOL/L. (22.0-26.0); ABG TOTAL CO2 33.3 MMOL/L (22.0-29.0); ABG pH (ARTERIAL) 7.348 UNITS (7.350-7.450)
[2024-03-09 05:39] LABS: ALBUMIN 3.6 G/DL (3.2-5.2); ALKALINE PHOSPHATASE 98 U/L (46-116); ALT/SGPT 49 U/L (7.0-40); AST/SGOT 34 U/L (<34); BILIRUBIN,DIRECT 0.1 MG/DL (<0.4); BILIRUBIN,TOTAL 0.5 MG/DL (0.3-1.2); BLOOD UREA NITROGEN 13 MG/DL (9-23); CALCIUM LEVEL 8.8 MG/DL (8.5-10.1); CARBON DIOXIDE LEVEL 35 MMOL/L (20-31); CHLORIDE LEVEL 97 MMOL/L (98-107); CK-MB VALUE MASS 1.4 NG/ML (<3.6); CREATININE FOR GFR 0.73 MG/DL (0.70-1.30); GLOMERULAR FILTRATION RATE > 60.0 (>56); GLUCOSE, FASTING 364 MG/DL (60-100); POTASSIUM SERUM 4.2 MMOL/L (3.5-5.1); SODIUM LEVEL 134 MMOL/L (136-145); TOTAL PROTEIN 7.4 G/DL (5.7-8.2)
[2024-03-09 05:41] LABS: THYROID STIMULATING HORMONE 4.432 uIU/ML (0.55-4.78); THYROXINE (T4) 9.1 UG/DL (4.5-10.9)
[2024-03-09 05:54] LABS: CPK CREATINE PHOSPHOKINASE 79 U/L (46-171); MB/CK RELATIVE INDEX 1.77 (< OR =4)
[2024-03-09] MEDS: predniSONE 20 MG TAB PO ONE (07:18)
[2024-03-09] MEDS: cefTRIAXone SOD 1 GM in D5W MINI-BAG PLUS 50 ML IV ONE (07:18)
[2024-03-09] MEDS: AZITHROMYCIN 250MG TABLET PO ONE (07:18)
[2024-03-09 08:00] LABS: PROCALCITONIN 0.25 ng/ml
[2024-03-09] MEDS ORDERED: DEXTROSE 50% 50ML SYRINGE IV PRN (08:20)
[2024-03-09] MEDS ORDERED: GLUCAGON INJ 1MG VIAL SC PRN (08:20)
[2024-03-09] MEDS ORDERED: GLUCOSE 4 GM CHEW PO PRN (08:20)
[2024-03-09 09:12] LABS: INR 0.99; PARTIAL THROMBOPLASTIN TIME 23.6 SECONDS (24.8-34.2); PROTHROMBIN TIME 12.8 SECONDS (12.5-14.5)
[2024-03-09] MEDS ORDERED: ALBU8.5H INH (09:59)
[2024-03-09] MEDS ORDERED: TAMS1CAP17 PO (10:02)
[2024-03-09] MEDS ORDERED: AZIT-12 PO (10:02)
[2024-03-09] MEDS ORDERED: ALBU2.5V10 INH (10:02)
[2024-03-09] MEDS ORDERED: BUPR-597 PO (10:02)
[2024-03-09] MEDS ORDERED: NYAM10003 TOP (10:02)
[2024-03-09] MEDS ORDERED: HOME MED LIST COMPLETE! XX SCH (10:05)
[2024-03-09 10:06] LABS: HEMOGLOBIN A1c 11.3 % (4.0-6.0)
[2024-03-09] MEDS: FUROSEMIDE 20MG/2ML VIAL IV ONE (10:34)
[2024-03-09] MEDS: buPROPion **XL** TABLET 150MG (WELLBUTRIN XL) PO SCH (10:34)
[2024-03-09] MEDS: ENOXAPARIN 40MG/0.4ML SYRINGE (J1650 PER 10MG) SC SCH (10:34)
[2024-03-09] MEDS: ROSUVASTATIN 10 MG TAB (CRESTOR) PO SCH (10:34)
[2024-03-09] MEDS: NICOTINE 14 MG/24 HR TRANSDERMAL TD SCH (10:35)
[2024-03-09] MEDS: LEVALBUTEROL 1.25MG 0.5ML CONCENTRATE NEB NEB SCH (11:40)
[2024-03-09] MEDS: methylPREDNISolone 125MG 2ML VIAL IV SCH (13:22)
[2024-03-09] MEDS: INSULIN LISPRO (NovoLOG) PER UNIT SC SCH ×2 (13:22→22:28)
[2024-03-09] MEDS: TAMSULOSIN 0.4 MG CAP PO SCH (21:17)
[2024-03-09] MEDS: NYSTATIN 100,000 UNITS/GM TOPICAL PWD 15GM TOP SCH (21:20)
[2024-03-10 04:47] LABS: HEMATOCRIT 40.5 % (42.0-52.0); HEMOGLOBIN 12.9 g/dl (13.5-17.5); MEAN CORPUSCULAR HEMOGLOBIN 31.5 pg (27.0-33.0); MEAN CORPUSCULAR HGB CONC 31.9 g/dl (32.0-36.5); PLATELET COUNT, AUTOMATED 255 10^3/uL (150-450); RED BLOOD COUNT 4.09 10^6/uL (4.30-6.10)
[2024-03-10 05:26] LABS: ALBUMIN 3.1 G/DL (3.2-5.2); ALKALINE PHOSPHATASE 87 U/L (46-116); ALT/SGPT 44 U/L (7.0-40); AST/SGOT 16 U/L (<34); BILIRUBIN,TOTAL 0.3 MG/DL (0.3-1.2); BLOOD UREA NITROGEN 21 MG/DL (9-23); CALCIUM LEVEL 8.9 MG/DL (8.5-10.1); CARBON DIOXIDE LEVEL 35 MMOL/L (20-31); CHLORIDE LEVEL 98 MMOL/L (98-107); CREATININE FOR GFR 0.79 MG/DL (0.70-1.30); GLOMERULAR FILTRATION RATE > 60.0 (>56); GLUCOSE, FASTING 358 MG/DL (60-100); POTASSIUM SERUM 5.2 MMOL/L (3.5-5.1); SODIUM LEVEL 133 MMOL/L (136-145); TOTAL PROTEIN 6.7 G/DL (5.7-8.2)
[2024-03-10] MEDS: cefTRIAXone SOD 1 GM in D5W MINI-BAG PLUS 50 ML IV SCH (07:08)
[2024-03-10] MEDS: LEVEMIR (INSULIN DETEMIR) 1 UNITS/0.01ML SC SCH (07:18)
[2024-03-10] MEDS: AZITHROMYCIN 250MG TABLET PO SCH (07:18)
[2024-03-10] MEDS: guaiFENesin ER TABLET 600 MG TAB PO SCH (07:19)
[2024-03-10] MEDS: FORMOTEROL FUMARATE 20 MCG/2 ML INHALATION SOLUTION (PERFOROMIST) INH SCH (08:46)
[2024-03-10] MEDS: BUDESONIDE 0.5 MG/2 ML INHALATION SUSPENSION NEB SCH (08:46)
[2024-03-10] MEDS: methylPREDNISolone 40MG 1ML VIAL IV SCH (13:07)
[2024-03-10 14:00] LABS: BLOOD UREA NITROGEN 23 MG/DL (9-23); CALCIUM LEVEL 8.8 MG/DL (8.5-10.1); CARBON DIOXIDE LEVEL 32 MMOL/L (20-31); CHLORIDE LEVEL 92 MMOL/L (98-107); GLOMERULAR FILTRATION RATE > 60.0 (>56); GLUCOSE, FASTING 434 MG/DL (60-100); POTASSIUM SERUM 4.6 MMOL/L (3.5-5.1); SODIUM LEVEL 130 MMOL/L (136-145)
[2024-03-10] MEDS: HumuLIN R (REGULAR) INSULIN (NovoLIN R) **100U/ML** PER UNIT IV STA ×2 (14:32→18:12)
[2024-03-10] MEDS ORDERED: diphenhydrAMINE 50MG/ML VIAL IV PRN (16:50)
[2024-03-10] MEDS ORDERED: INSULIN LISPRO (NovoLOG) PER UNIT SC SCH (17:30)
[2024-03-10] MEDS: INSULIN LISPRO (NovoLOG) PER UNIT SC SCH (17:57)
[2024-03-10 20:16] VITALS: BP 150/89; TEMP 96.6; O2SAT 94
[2024-03-10] MEDS: LIDOCAINE 5% OINT 30GM TUBE TOP SCH (21:00)
[2024-03-10 22:44] VITALS: O2SAT 94
[2024-03-11 00:33] VITALS: O2SAT 95
[2024-03-11 03:53] VITALS: BP 142/82; TEMP 97.3; O2SAT 93
[2024-03-11 07:54] LABS: BASO % 0.3 % (0.0-1.0); EOS % 0.2 % (0.0-3.0); HEMATOCRIT 40.9 % (42.0-52.0); HEMOGLOBIN 13.1 g/dl (13.5-17.5); LYMPH # 2.3 10^3/uL (1.5-5.0); MEAN CORPUSCULAR HEMOGLOBIN 31.8 pg (27.0-33.0); MEAN CORPUSCULAR VOLUME 99.3 fl (80.0-96.0); MONO # 0.8 10^3/uL (0.0-0.8); MONO % 5.4 % (2.0-8.0); NEUTROPHILS # 11.9 10^3/uL (1.5-8.5); NEUTROPHILS % 78.2 % (36.0-66.0); PLATELET COUNT, AUTOMATED 278 10^3/uL (150-450); RED BLOOD COUNT 4.12 10^6/uL (4.30-6.10); WHITE BLOOD COUNT 15.1 10^3/uL (4.0-10.0)
[2024-03-11 08:20] LABS: BLOOD UREA NITROGEN 30 MG/DL (9-23); CALCIUM LEVEL 8.6 MG/DL (8.5-10.1); CARBON DIOXIDE LEVEL 35 MMOL/L (20-31); CHLORIDE LEVEL 98 MMOL/L (98-107); CREATININE FOR GFR 0.91 MG/DL (0.70-1.30); GLOMERULAR FILTRATION RATE > 60.0 (>56); GLUCOSE, FASTING 351 MG/DL (60-100); POTASSIUM SERUM 4.3 MMOL/L (3.5-5.1); SODIUM LEVEL 134 MMOL/L (136-145)
[2024-03-11] MEDS ORDERED: predniSONE 20 MG TAB PO SCH (09:00)
[2024-03-11 09:32] VITALS: O2SAT 95
[2024-03-11] MEDS: predniSONE 20 MG TAB PO SCH (10:02)
[2024-03-11] MEDS: SENOKOT S TAB PO SCH (10:02)
[2024-03-11] MEDS: LEVEMIR (INSULIN DETEMIR) 1 UNITS/0.01ML SC SCH ×2 (10:04→20:42)
[2024-03-11] MEDS: INSULIN LISPRO (NovoLOG) PER UNIT SC SCH (10:06)
[2024-03-11 10:36] LABS: URIC ACID 6.4 MG/DL (3.7-9.2)
[2024-03-11 12:00] VITALS: BP 124/68; TEMP 97.3; O2SAT 95
[2024-03-11] MEDS: BISACODYL 10MG SUPP PR ONE (13:07)
[2024-03-11 20:00] VITALS: O2SAT 96
[2024-03-12 04:20] VITALS: BP 155/84; TEMP 97.5; O2SAT 94
[2024-03-12 06:24] LABS: BASO % 0.4 % (0.0-1.0); EOS # 0.1 10^3/uL (0.0-0.5); EOS % 0.9 % (0.0-3.0); HEMATOCRIT 38.8 % (42.0-52.0); HEMOGLOBIN 12.1 g/dl (13.5-17.5); LYMPH # 2.6 10^3/uL (1.5-5.0); LYMPH % 24.8 % (24.0-44.0); MEAN CORPUSCULAR HEMOGLOBIN 31.2 pg (27.0-33.0); MEAN CORPUSCULAR HGB CONC 31.2 g/dl (32.0-36.5); MONO # 0.7 10^3/uL (0.0-0.8); MONO % 6.4 % (2.0-8.0); NEUTROPHILS # 6.9 10^3/uL (1.5-8.5); PLATELET COUNT, AUTOMATED 251 10^3/uL (150-450); RED BLOOD COUNT 3.88 10^6/uL (4.30-6.10); WHITE BLOOD COUNT 10.4 10^3/uL (4.0-10.0)
[2024-03-12 06:49] LABS: BLOOD UREA NITROGEN 31 MG/DL (9-23); CALCIUM LEVEL 8.7 MG/DL (8.5-10.1); CARBON DIOXIDE LEVEL 36 MMOL/L (20-31); CHLORIDE LEVEL 99 MMOL/L (98-107); CREATININE FOR GFR 0.97 MG/DL (0.70-1.30); GLOMERULAR FILTRATION RATE > 60.0 (>56); GLUCOSE, FASTING 254 MG/DL (60-100); MAGNESIUM LEVEL 2.1 MG/DL (1.8-2.4); POTASSIUM SERUM 4.6 MMOL/L (3.5-5.1); SODIUM LEVEL 135 MMOL/L (136-145)
[2024-03-12] MEDS: BISACODYL 10MG SUPP PR SCH (08:19)
[2024-03-12] MEDS: INSULIN LISPRO (NovoLOG) PER UNIT SC SCH ×2 (08:19→17:28)
[2024-03-12 11:41] LABS: PROCALCITONIN 0.17 ng/ml
[2024-03-12 12:00] VITALS: BP 156/96; TEMP 96.3; O2SAT 92
[2024-03-12] MEDS: HumuLIN N INSULIN (NovoLIN N) PER UNIT SC ONE ×2 (15:58→17:28)
[2024-03-12 20:00] VITALS: BP 153/85; TEMP 97.2; O2SAT 92
[2024-03-13 04:00] VITALS: BP 117/68; TEMP 97.3; O2SAT 94
[2024-03-13 06:29] LABS: BASO # 0.1 10^3/uL (0.0-0.2); BASO % 0.6 % (0.0-1.0); EOS # 0.1 10^3/uL (0.0-0.5); EOS % 1.3 % (0.0-3.0); HEMATOCRIT 40.9 % (42.0-52.0); HEMOGLOBIN 12.7 g/dl (13.5-17.5); LYMPH # 2.7 10^3/uL (1.5-5.0); LYMPH % 25.5 % (24.0-44.0); MEAN CORPUSCULAR HEMOGLOBIN 31.1 pg (27.0-33.0); MEAN CORPUSCULAR HGB CONC 31.1 g/dl (32.0-36.5); MEAN CORPUSCULAR VOLUME 100.2 fl (80.0-96.0); MONO # 0.8 10^3/uL (0.0-0.8); MONO % 7.7 % (2.0-8.0); NEUTROPHILS # 6.6 10^3/uL (1.5-8.5); NEUTROPHILS % 63.3 % (36.0-66.0); PLATELET COUNT, AUTOMATED 262 10^3/uL (150-450); RED BLOOD COUNT 4.08 10^6/uL (4.30-6.10); WHITE BLOOD COUNT 10.5 10^3/uL (4.0-10.0)
[2024-03-13 06:36] LABS: BLOOD UREA NITROGEN 24 MG/DL (9-23); CALCIUM LEVEL 8.9 MG/DL (8.5-10.1); CARBON DIOXIDE LEVEL 34 MMOL/L (20-31); CHLORIDE LEVEL 100 MMOL/L (98-107); GLOMERULAR FILTRATION RATE > 60.0 (>56); GLUCOSE, FASTING 299 MG/DL (60-100); POTASSIUM SERUM 4.6 MMOL/L (3.5-5.1); SODIUM LEVEL 137 MMOL/L (136-145)
[2024-03-13 07:22] VITALS: O2SAT 92
[2024-03-13] MEDS: CEFDINIR 300 MG CAP (OMNICEF) PO SCH (08:09)
[2024-03-13] MEDS: HumuLIN N INSULIN (NovoLIN N) PER UNIT SC SCH (08:19)
[2024-03-13] MEDS ORDERED: CEFD300CAP PO (08:47)
[2024-03-13] MEDS ORDERED: PERF20NE2 INH (08:47)
[2024-03-13] MEDS ORDERED: MUCI600T31 PO (08:47)
[2024-03-13] MEDS ORDERED: NICO14PA TD (08:47)
[2024-03-13] MEDS ORDERED: GLUC1TES2 XX (08:48)
[2024-03-13] MEDS ORDERED: PEN-308 SC (08:48)
[2024-03-13] MEDS ORDERED: ALCOPAD25 TOP (08:48)
[2024-03-13] MEDS ORDERED: BLOOKIT21 XX (08:48)
[2024-03-13] MEDS ORDERED: LANC30MI XX (08:48)
[2024-03-13] MEDS ORDERED: INSU100I48 SQ (08:52)
[2024-03-13] MEDS ORDERED: INSU100I14 SQ (08:52)
[2024-03-13] MEDS ORDERED: INSUHUMDS SC (08:55)
[2024-03-13] MEDS ORDERED: LIPI20TA PO (08:57)
[2024-03-13] MEDS ORDERED: ASPIRIN 81MG CHEW TABLET PO SCH (09:00)
[2024-03-13 09:23] LABS: CHOLESTEROL LEVEL 194 MG/DL (<200); CHOLESTEROL RISK RATIO 4.96 (<5); HDL CHOLESTEROL 39.1 MG/DL (>40); LDL CHOLESTEROL 116.5 MG/DL (<100); NON-HDL-C 154.9 MG/DL; TRIGLYCERIDES LEVEL 192 MG/DL (<150)
[2024-03-13] MEDS: HumuLIN N INSULIN (NovoLIN N) PER UNIT SC ONE (10:58)
[2024-03-13 12:00] VITALS: BP 146/77; TEMP 97.3; O2SAT 92
[2024-03-13 20:00] VITALS: BP 142/79; TEMP 97.2; O2SAT 94
[2024-03-13] MEDS: ATORVASTATIN 20 MG TAB PO SCH (20:36)
[2024-03-14 04:58] VITALS: BP 124/76; TEMP 97.3; O2SAT 94
[2024-03-14] MEDS: LEVALBUTEROL 1.25MG 0.5ML CONCENTRATE NEB NEB PRN (05:30)
[2024-03-14 06:19] LABS: BASO # 0.1 10^3/uL (0.0-0.2); BASO % 0.6 % (0.0-1.0); EOS # 0.2 10^3/uL (0.0-0.5); EOS % 1.9 % (0.0-3.0); HEMATOCRIT 42.4 % (42.0-52.0); HEMOGLOBIN 13.3 g/dl (13.5-17.5); LYMPH # 2.3 10^3/uL (1.5-5.0); LYMPH % 23.1 % (24.0-44.0); MEAN CORPUSCULAR HEMOGLOBIN 31.4 pg (27.0-33.0); MEAN CORPUSCULAR HGB CONC 31.4 g/dl (32.0-36.5); MONO # 0.7 10^3/uL (0.0-0.8); MONO % 7.2 % (2.0-8.0); NEUTROPHILS # 6.4 10^3/uL (1.5-8.5); NEUTROPHILS % 64.9 % (36.0-66.0); PLATELET COUNT, AUTOMATED 258 10^3/uL (150-450); RED BLOOD COUNT 4.24 10^6/uL (4.30-6.10); WHITE BLOOD COUNT 9.8 10^3/uL (4.0-10.0)
[2024-03-14 06:36] LABS: BLOOD UREA NITROGEN 19 MG/DL (9-23); CALCIUM LEVEL 8.7 MG/DL (8.5-10.1); CARBON DIOXIDE LEVEL 35 MMOL/L (20-31); CHLORIDE LEVEL 100 MMOL/L (98-107); CREATININE FOR GFR 0.91 MG/DL (0.70-1.30); GLOMERULAR FILTRATION RATE > 60.0 (>56); GLUCOSE, FASTING 140 MG/DL (60-100); MAGNESIUM LEVEL 2.1 MG/DL (1.8-2.4); POTASSIUM SERUM 4.6 MMOL/L (3.5-5.1); SODIUM LEVEL 137 MMOL/L (136-145)
[2024-03-14] MEDS: methylPREDNISolone 125MG 2ML VIAL IV ONE (08:01)
[2024-03-14] MEDS: HumuLIN N INSULIN (NovoLIN N) PER UNIT SC SCH (08:02)
[2024-03-14] MEDS ORDERED: PRED10TA2 PO (10:08)
[2024-03-14] MEDS: IPRATROPIUM 0.5MG/ALBUTEROL 2.5MG INH SOL UD 3ML (DUONEB) NEB SCH (12:00)
[2024-03-14 12:18] VITALS: BP 146/90; TEMP 97.3; O2SAT 91
[2024-03-14] MEDS ORDERED: HUMU1INJ2 SC (14:20)
[2024-03-14] MEDS ORDERED: VENTAER INH (14:27)
[2024-03-14] MEDS ORDERED: PRED20TA PO (14:30)
[2024-03-14] MEDS ORDERED: DOXY-440 PO (14:31)
[2024-03-14] MEDS: HumuLIN N INSULIN (NovoLIN N) PER UNIT SC ONE (14:35)
[2024-03-15] MEDS ORDERED: HumuLIN N INSULIN (NovoLIN N) PER UNIT SC SCH (07:30)
[2024-03-15] MEDS ORDERED: predniSONE 20 MG TAB PO SCH (09:00)
== END 2024-03-14 14:52 | disposition home or self-care (01) | DRG 637 ==
LOC: M ED 04:24 → EDBD 04:24 → M ED INP 04:25 → UNDOADMOB 04:25 → M ED INP 04:26 → INTOOBSV 03-10 10:21 → OBSVTOIN 03-10 10:21 → UNDOADMOB 03-10 10:21 → M MSPAV 03-10 16:43 → M ED INP 03-10 16:43 → UNDODISIN 03-14 14:52
PROVIDERS: ADMIT Internal Medicine; ATTEND General Practice
DX: E11.65 Type 2 diabetes mellitus with hyperglycemia (principal); J18.9 Pneumonia, unspecified organism; J96.11 Chronic respiratory failure with hypoxia; J44.1 Chronic obstructive pulmonary disease with (acute) exacerbation; J44.0 Chronic obstructive pulmonary disease with (acute) lower respiratory infection; J90 Pleural effusion, not elsewhere classified; E87.1 Hypo-osmolality and hyponatremia; E66.2 Morbid (severe) obesity with alveolar hypoventilation; E78.5 Hyperlipidemia, unspecified; F17.210 Nicotine dependence, cigarettes, uncomplicated; G89.29 Other chronic pain; F20.9 Schizophrenia, unspecified; R26.89 Other abnormalities of gait and mobility; F43.10 Post-traumatic stress disorder, unspecified; M54.10 Radiculopathy, site unspecified; Z79.899 Other long term (current) drug therapy; Z88.5 Allergy status to narcotic agent; Z88.8 Allergy status to other drugs, medicaments and biological substances; Z91.040 Latex allergy status; Z11.52 Encounter for screening for COVID-19; Z99.81 Dependence on supplemental oxygen; Z86.16 Personal history of COVID-19; Z90.49 Acquired absence of other specified parts of digestive tract; Z68.39 Body mass index [BMI] 39.0-39.9, adult; Z71.6 Tobacco abuse counseling; T38.0X5A Adverse effect of glucocorticoids and synthetic analogues, initial encounter

== ENCOUNTER → 2024-04-25 | Outpatient (REF) | payer OTHER, MEDICAID ==
[~2024-04-25] MED LIST changes: +ALBU2.5V10 INH; +ALBU8.5H INH; +ALCOPAD25 TOP; +AZIT-12 PO; +BLOOKIT21 XX; +BUPR-597 PO; +CEFD300CAP PO; +DOXY-440 PO; +GLUC1TES2 XX; +HUMU1INJ2 SC; +INSU100I14 SQ; +INSU100I48 SQ; +INSUHUMDS SC; +LANC30MI XX; +LIPI20TA PO; +MUCI600T31 PO; +NICO14PA TD; +NYAM10003 TOP; +PEN-308 SC; +PERF20NE2 INH; -ROSU20TA61 PO; +ROSU20TA86 PO; +TAMS1CAP17 PO
[2024-04-25 14:56] LABS: BASO # 0.1 10^3/uL (0.0-0.2); BASO % 0.7 % (0.0-1.0); EOS # 0.1 10^3/uL (0.0-0.5); EOS % 0.8 % (0.0-3.0); HEMATOCRIT 40.3 % (42.0-52.0); HEMOGLOBIN 12.5 g/dl (13.5-17.5); LYMPH # 1.3 10^3/uL (1.5-5.0); MEAN CORPUSCULAR HEMOGLOBIN 32.2 pg (27.0-33.0); MEAN CORPUSCULAR VOLUME 103.9 fl (80.0-96.0); MONO # 0.6 10^3/uL (0.0-0.8); MONO % 6.6 % (2.0-8.0); NEUTROPHILS # 6.3 10^3/uL (1.5-8.5); NEUTROPHILS % 75.3 % (36.0-66.0); PLATELET COUNT, AUTOMATED 258 10^3/uL (150-450); RED BLOOD COUNT 3.88 10^6/uL (4.30-6.10); WHITE BLOOD COUNT 8.4 10^3/uL (4.0-10.0)
[2024-04-25 15:03] LABS: HEMOGLOBIN A1c 9.1 % (4.0-6.0)
[2024-04-25 15:22] LABS: ALBUMIN 3.2 G/DL (3.2-5.2); ALKALINE PHOSPHATASE 83 U/L (46-116); ALT/SGPT 20 U/L (7.0-40); AST/SGOT 12 U/L (<34); BILIRUBIN,TOTAL 0.3 MG/DL (0.3-1.2); BLOOD UREA NITROGEN 19 MG/DL (9-23); CALCIUM LEVEL 9.4 MG/DL (8.5-10.1); CARBON DIOXIDE LEVEL 38 MMOL/L (20-31); CHLORIDE LEVEL 101 MMOL/L (98-107); CHOLESTEROL LEVEL 193 MG/DL (<200); CHOLESTEROL RISK RATIO 5.09 (<5); CREATININE FOR GFR 0.81 MG/DL (0.70-1.30); GLOMERULAR FILTRATION RATE > 60.0 (>56); GLUCOSE, FASTING 165 MG/DL (60-100); HDL CHOLESTEROL 37.9 MG/DL (>40); LDL CHOLESTEROL 133.3 MG/DL (<100); MAGNESIUM LEVEL 1.9 MG/DL (1.8-2.4); NON-HDL-C 155.1 MG/DL; POTASSIUM SERUM 4.9 MMOL/L (3.5-5.1); SODIUM LEVEL 141 MMOL/L (136-145); TOTAL PROTEIN 6.7 G/DL (5.7-8.2); TRIGLYCERIDES LEVEL 109 MG/DL (<150)
[2024-04-25 15:23] LABS: THYROID STIMULATING HORMONE 2.421 uIU/ML (0.55-4.78)
[2024-04-25 15:24] LABS: TOTAL 25(OH) VITAMIN D 32.5 NG/ML (20.0-100.0)
== END ==
LOC: M LAB REF 12:06
PROVIDERS: ATTEND Nurse Practitioner Family
DX: E55.9 Vitamin D deficiency, unspecified (principal); E66.9 Obesity, unspecified; Z79.899 Other long term (current) drug therapy

== ENCOUNTER → 2024-05-02 | Outpatient (CLI) | payer OTHER, MEDICAID | LOC: M WHC 08:55 | PROVIDERS: ATTEND Nurse Practitioner Family | DX: K59.00 Constipation, unspecified (principal); R14.0 Abdominal distension (gaseous); R16.0 Hepatomegaly, not elsewhere classified ==

== ENCOUNTER → 2024-08-16 | Outpatient (REF) | payer OTHER ==
[2024-08-16 18:44] LABS: ALBUMIN 3.4 G/DL (3.2-5.2); ALKALINE PHOSPHATASE 72 U/L (40-129); ALT/SGPT 17 U/L (7.0-40); AST/SGOT 13 U/L (<34); BILIRUBIN,TOTAL 0.2 MG/DL (0.3-1.2); BLOOD UREA NITROGEN 26 MG/DL (9-23); CALCIUM LEVEL 8.8 MG/DL (8.5-10.1); CARBON DIOXIDE LEVEL 36 MMOL/L (20-31); CHLORIDE LEVEL 102 MMOL/L (98-107); CREATININE FOR GFR 0.87 MG/DL (0.70-1.30); GLOMERULAR FILTRATION RATE > 60.0 (>56); GLUCOSE, FASTING 135 MG/DL (60-100); POTASSIUM SERUM 4.8 MMOL/L (3.5-5.1); SODIUM LEVEL 143 MMOL/L (136-145); TOTAL PROTEIN 7.3 G/DL (5.7-8.2)
== END ==
LOC: M LAB REF 17:31
PROVIDERS: ATTEND Nurse Practitioner Family
DX: E11.9 Type 2 diabetes mellitus without complications (principal)

== ENCOUNTER → 2024-10-03 | Outpatient (REF) | payer OTHER ==
[~2024-10-03] MED LIST changes: +ATOR40TA75 PO; +D32000TA PO; +HUMA100I5 SC; +LANTINJ4 SC
== END ==
LOC: M LAB REF 17:43
PROVIDERS: ATTEND Nurse Practitioner Family
DX: B34.9 Viral infection, unspecified (principal)

== ENCOUNTER 2024-10-05 14:57 | Inpatient (IN) | payer OTHER ==
[~2024-10-05] VITALS: Ht 170.2 cm; Wt 102.3 kg
[~2024-10-05 14:57] MED LIST changes: -ATOR40TA75 PO; -D32000TA PO; -HUMA100I5 SC; -LANTINJ4 SC
[2024-10-05 15:56] LABS: BASO % 0.2 % (0.0-1.0); EOS # 0.3 10^3/uL (0.0-0.5); EOS % 2.1 % (0.0-3.0); HEMATOCRIT 38.2 % (42.0-52.0); HEMOGLOBIN 11.4 g/dl (13.5-17.5); LYMPH # 1.8 10^3/uL (1.5-5.0); LYMPH % 14.8 % (24.0-44.0); MEAN CORPUSCULAR HEMOGLOBIN 30.7 pg (27.0-33.0); MEAN CORPUSCULAR HGB CONC 29.8 g/dl (32.0-36.5); MONO # 0.9 10^3/uL (0.0-0.8); MONO % 7.1 % (2.0-8.0); NEUTROPHILS # 8.9 10^3/uL (1.5-8.5); NEUTROPHILS % 74.7 % (36.0-66.0); PLATELET COUNT, AUTOMATED 214 10^3/uL (150-450); RED BLOOD COUNT 3.71 10^6/uL (4.30-6.10); WHITE BLOOD COUNT 11.9 10^3/uL (4.0-10.0)
[2024-10-05] MEDS: IPRATROPIUM 0.5MG/ALBUTEROL 2.5MG INH SOL UD 3ML (DUONEB) NEB ONE (16:04)
[2024-10-05] MEDS: ALBUTEROL SULFATE 2.5MG/0.5ML INH NEB SOLN INH ONE (16:04)
[2024-10-05 16:09] LABS: ALBUMIN 3.2 G/DL (3.2-5.2); ALKALINE PHOSPHATASE 58 U/L (40-129); ALT/SGPT 31 U/L (7.0-40); AST/SGOT 17 U/L (<34); BILIRUBIN,DIRECT < 0.1 MG/DL (<0.4); BILIRUBIN,TOTAL 0.2 MG/DL (0.3-1.2); BLOOD UREA NITROGEN 24 MG/DL (9-23); CALCIUM LEVEL 8.6 MG/DL (8.5-10.1); CARBON DIOXIDE LEVEL > 40.0 MMOL/L (20-31); CHLORIDE LEVEL 91 MMOL/L (98-107); CK-MB VALUE MASS 1.2 NG/ML (<3.6); CPK CREATINE PHOSPHOKINASE 64 U/L (46-171); CREATININE FOR GFR 0.77 MG/DL (0.70-1.30); GLOMERULAR FILTRATION RATE > 60.0 (>56); GLUCOSE, FASTING 279 MG/DL (60-100); MB/CK RELATIVE INDEX 1.87 (< OR =4); SODIUM LEVEL 140 MMOL/L (136-145); TOTAL PROTEIN 6.2 G/DL (5.7-8.2)
[2024-10-05] MEDS ORDERED: ISOVUE-370 76% 100ML VIAL As Ordered ONE (16:43)
[2024-10-05 17:13] LABS: ABG HCO3 43.3 MMOL/L (22.0-26.0); ABG O2 SATURATION 88.8 % (95.0-99.0); ABG PARTIAL PRESSURE CO2 81.4 mmHg (35.0-45.0); ABG PARTIAL PRESSURE O2 53.8 mmHg (75.0-100.0); ABG STANDARD HCO3 37.7 MMOL/L. (22.0-26.0); ABG TOTAL CO2 45.8 MMOL/L (22.0-29.0); ABG pH (ARTERIAL) 7.344 UNITS (7.350-7.450)
[2024-10-05] MEDS ORDERED: ATOR40TA75 PO (18:17)
[2024-10-05] MEDS ORDERED: D32000TA PO (18:17)
[2024-10-05] MEDS ORDERED: HUMA100I5 SC (18:17)
[2024-10-05] MEDS ORDERED: LANTINJ4 SC (18:17)
[2024-10-05] MEDS ORDERED: GLUCAGON INJ 1MG VIAL SC PRN (18:20)
[2024-10-05] MEDS ORDERED: ACETAMINOPHEN 325 MG TAB PO PRN (18:20)
[2024-10-05] MEDS ORDERED: HOME MED LIST COMPLETE! XX SCH (18:20)
[2024-10-05] MEDS ORDERED: ALBUTEROL 90 MCG/ACT 8GM HFA INHALER INH PRN (18:20)
[2024-10-05] MEDS ORDERED: GLUCOSE 4 GM CHEW PO PRN (18:20)
[2024-10-05] MEDS ORDERED: MOM 30ML SUSPENSION UDC PO PRN (18:20)
[2024-10-05] MEDS ORDERED: DEXTROSE 50% 50ML SYRINGE IV PRN (18:20)
[2024-10-05] MEDS: IPRATROPIUM 0.5MG/ALBUTEROL 2.5MG INH SOL UD 3ML (DUONEB) NEB SCH (19:21)
[2024-10-05] MEDS: FUROSEMIDE 40MG/4ML VIAL IV ONE (19:21)
[2024-10-05] MEDS: DOCUSATE SODIUM 100MG CAPSULE PO SCH (19:21)
[2024-10-05 19:47] LABS: MAGNESIUM LEVEL 1.9 MG/DL (1.8-2.4)
[2024-10-05 19:49] LABS: IRON (FE) 69 UG/DL (65-175); PERCENT SATURATION 21.8 % (19.7-50.0); TOTAL IRON BINDING CAPACITY 316 UG/DL (250-425)
[2024-10-05 19:51] LABS: FOLATE 15.24 NG/ML (>5.4); VITAMIN B12 LEVEL 530 PG/ML (211-911)
[2024-10-05 19:52] LABS: FERRITIN 146.1 NG/ML (10.5-307.3)
[2024-10-05 19:56] LABS: PROCALCITONIN 0.06 ng/ml
[2024-10-05] MEDS: GLYCOPYRROLATE INJ 0.2 MG/ML 2 ML VIAL NEB SCH (20:00)
[2024-10-05] MEDS: ADVAIR HFA 230/21MCG INHALER INH SCH (20:00)
[2024-10-05] MEDS: INSULIN LISPRO (NovoLOG) PER UNIT SC SCH (20:08)
[2024-10-05 20:10] LABS: INR 0.86; PARTIAL THROMBOPLASTIN TIME 24.2 SECONDS (24.8-34.2); PROTHROMBIN TIME 12.1 SECONDS (12.5-14.5)
[2024-10-05] MEDS: NYSTATIN 100,000 UNITS/GM TOPICAL PWD 15GM TOP SCH (21:00)
[2024-10-05] MEDS: TAMSULOSIN 0.4 MG CAP PO SCH (21:09)
[2024-10-05] MEDS: methylPREDNISolone 125MG 2ML VIAL IV SCH (21:09)
[2024-10-06] VITALS (18 sets, daily range): BP systolic 132–146; BP diastolic 63–72; TEMP 98–99; O2SAT 89–96
[2024-10-06 06:32] LABS: HEMATOCRIT 38.1 % (42.0-52.0); HEMOGLOBIN 11.9 g/dl (13.5-17.5); MEAN CORPUSCULAR HEMOGLOBIN 30.6 pg (27.0-33.0); MEAN CORPUSCULAR HGB CONC 31.2 g/dl (32.0-36.5); MEAN CORPUSCULAR VOLUME 97.9 fl (80.0-96.0); PLATELET COUNT, AUTOMATED 227 10^3/uL (150-450); RED BLOOD COUNT 3.89 10^6/uL (4.30-6.10); WHITE BLOOD COUNT 14.2 10^3/uL (4.0-10.0)
[2024-10-06] MEDS: FUROSEMIDE 40MG/4ML VIAL IV SCH (06:37)
[2024-10-06 06:42] LABS: BLOOD UREA NITROGEN 26 MG/DL (9-23); CALCIUM LEVEL 9.1 MG/DL (8.5-10.1); CARBON DIOXIDE LEVEL 38 MMOL/L (20-31); CHLORIDE LEVEL 94 MMOL/L (98-107); CREATININE FOR GFR 0.85 MG/DL (0.70-1.30); GLOMERULAR FILTRATION RATE > 60.0 (>56); GLUCOSE, FASTING 287 MG/DL (60-100); POTASSIUM SERUM 4.7 MMOL/L (3.5-5.1); SODIUM LEVEL 135 MMOL/L (136-145)
[2024-10-06] MEDS: AZITHROMYCIN 250MG TABLET PO SCH (08:28)
[2024-10-06] MEDS: RIVAROXABAN 10MG TAB (XARELTO) PO SCH (08:28)
[2024-10-06] MEDS: ATORVASTATIN 20 MG TAB PO SCH (08:28)
[2024-10-06] MEDS: LanTUS (INSULIN GLARGINE INJ) 1 UNITS/0.01 ML SC SCH (08:29)
[2024-10-06] MEDS: VITAMIN D 1,000 INTERNATIONAL UNITS TABLET PO SCH (08:30)
[2024-10-06] MEDS: INSULIN LISPRO (NovoLOG) PER UNIT SC SCH (08:30)
[2024-10-06] MEDS: buPROPion **XL** TABLET 150MG (WELLBUTRIN XL) PO SCH (08:31)
[2024-10-06 15:27] LABS: AMPHETAMINES LEVEL URINE NEGATIVE (NEGATIVE); BARBITURATES URINE NEGATIVE (NEGATIVE); BENZODIAZEPINES URINE NEGATIVE (NEGATIVE); COCAINE METABOLITE URINE NEGATIVE (NEGATIVE); METHADONE URINE NEGATIVE (NEGATIVE); OPIATES URINE NEGATIVE (NEGATIVE); PHENCYCLIDINE URINE NEGATIVE (NEGATIVE)
[2024-10-06 15:31] LABS: CANNABINOIDS URINE POSITIVE (NEGATIVE)
[2024-10-06] MEDS: LanTUS (INSULIN GLARGINE INJ) 1 UNITS/0.01 ML SC ONE (18:03)
[2024-10-07 03:38] VITALS: BP 111/55; TEMP 98.7; O2SAT 94
[2024-10-07 05:34] LABS: HEMATOCRIT 37.5 % (42.0-52.0); HEMOGLOBIN 11.7 g/dl (13.5-17.5); MEAN CORPUSCULAR HEMOGLOBIN 30.2 pg (27.0-33.0); MEAN CORPUSCULAR HGB CONC 31.2 g/dl (32.0-36.5); MEAN CORPUSCULAR VOLUME 96.6 fl (80.0-96.0); PLATELET COUNT, AUTOMATED 247 10^3/uL (150-450); RED BLOOD COUNT 3.88 10^6/uL (4.30-6.10); WHITE BLOOD COUNT 23.1 10^3/uL (4.0-10.0)
[2024-10-07 05:51] LABS: BLOOD UREA NITROGEN 37 MG/DL (9-23); CARBON DIOXIDE LEVEL 35 MMOL/L (20-31); CHLORIDE LEVEL 97 MMOL/L (98-107); CREATININE FOR GFR 0.93 MG/DL (0.70-1.30); GLOMERULAR FILTRATION RATE > 60.0 (>56); GLUCOSE, FASTING 292 MG/DL (60-100); POTASSIUM SERUM 4.7 MMOL/L (3.5-5.1); SODIUM LEVEL 136 MMOL/L (136-145)
[2024-10-07 07:46] VITALS: BP 118/64; TEMP 98.7; O2SAT 97
[2024-10-07 09:13] LABS: CPK CREATINE PHOSPHOKINASE 36 U/L (46-171)
[2024-10-07] MEDS: LanTUS (INSULIN GLARGINE INJ) 1 UNITS/0.01 ML SC SCH (09:52)
[2024-10-07] MEDS: predniSONE 20 MG TAB PO SCH (09:53)
[2024-10-07] MEDS: ACETAMINOPHEN 500 MG TAB PO SCH (11:01)
[2024-10-07] MEDS: HumuLIN N INSULIN (NovoLIN N) PER UNIT SC SCH (11:02)
[2024-10-07 14:29] VITALS: BP 131/77; TEMP 97.5; O2SAT 90
[2024-10-07 20:10] VITALS: BP 130/77; TEMP 97.2; O2SAT 97
[2024-10-08 04:05] VITALS: BP 131/77; TEMP 96.8; O2SAT 93
[2024-10-08 06:06] LABS: MEAN CORPUSCULAR HEMOGLOBIN 30.6 pg (27.0-33.0); MEAN CORPUSCULAR HGB CONC 31.6 g/dl (32.0-36.5); MEAN CORPUSCULAR VOLUME 96.9 fl (80.0-96.0); PLATELET COUNT, AUTOMATED 243 10^3/uL (150-450); RED BLOOD COUNT 3.92 10^6/uL (4.30-6.10); WHITE BLOOD COUNT 18.7 10^3/uL (4.0-10.0)
[2024-10-08 06:23] LABS: BLOOD UREA NITROGEN 42 MG/DL (9-23); CALCIUM LEVEL 8.9 MG/DL (8.5-10.1); CARBON DIOXIDE LEVEL 35 MMOL/L (20-31); CHLORIDE LEVEL 100 MMOL/L (98-107); CREATININE FOR GFR 0.95 MG/DL (0.70-1.30); GLOMERULAR FILTRATION RATE > 60.0 (>56); GLUCOSE, FASTING 181 MG/DL (60-100); POTASSIUM SERUM 3.8 MMOL/L (3.5-5.1); SODIUM LEVEL 139 MMOL/L (136-145)
[2024-10-08] MEDS ORDERED: LanTUS (INSULIN GLARGINE INJ) 1 UNITS/0.01 ML SC ONE (09:50)
[2024-10-08] MEDS: LanTUS (INSULIN GLARGINE INJ) 1 UNITS/0.01 ML SC ONE (10:45)
[2024-10-08 12:00] VITALS: BP 111/70; TEMP 97.3; O2SAT 96
[2024-10-08 21:00] VITALS: BP 112/64; TEMP 97.2; O2SAT 93
[2024-10-09 03:30] VITALS: BP 121/79; TEMP 97.2; O2SAT 97
[2024-10-09 06:16] LABS: HEMATOCRIT 37.6 % (42.0-52.0); HEMOGLOBIN 11.6 g/dl (13.5-17.5); MEAN CORPUSCULAR HEMOGLOBIN 30.7 pg (27.0-33.0); MEAN CORPUSCULAR HGB CONC 30.9 g/dl (32.0-36.5); MEAN CORPUSCULAR VOLUME 99.5 fl (80.0-96.0); PLATELET COUNT, AUTOMATED 204 10^3/uL (150-450); RED BLOOD COUNT 3.78 10^6/uL (4.30-6.10); WHITE BLOOD COUNT 13.9 10^3/uL (4.0-10.0)
[2024-10-09 06:43] LABS: BLOOD UREA NITROGEN 40 MG/DL (9-23); CALCIUM LEVEL 8.4 MG/DL (8.5-10.1); CARBON DIOXIDE LEVEL 34 MMOL/L (20-31); CHLORIDE LEVEL 102 MMOL/L (98-107); CREATININE FOR GFR 0.84 MG/DL (0.70-1.30); GLOMERULAR FILTRATION RATE > 60.0 (>56); GLUCOSE, FASTING 138 MG/DL (60-100); POTASSIUM SERUM 4.1 MMOL/L (3.5-5.1); SODIUM LEVEL 141 MMOL/L (136-145)
[2024-10-09] MEDS: HumuLIN N INSULIN (NovoLIN N) PER UNIT SC SCH (08:20)
[2024-10-09] MEDS: predniSONE 10MG TAB PO SCH (08:20)
[2024-10-09] MEDS: LanTUS (INSULIN GLARGINE INJ) 1 UNITS/0.01 ML SC SCH (08:20)
[2024-10-09] MEDS ORDERED: BUPR-597 PO (08:58)
[2024-10-09 12:00] VITALS: BP 118/68; TEMP 97.8; O2SAT 98
[2024-10-09] MEDS ORDERED: FURO40TA2 PO (12:06)
[2024-10-09] MEDS ORDERED: HUMU1INJ2 SC (12:06)
[2024-10-09] MEDS ORDERED: SPIR50TA4 PO (12:06)
[2024-10-09] MEDS ORDERED: PRED10TA2 PO (12:06)
[2024-10-09] MEDS ORDERED: [UNRECOGNIZED DRUG - CODE] SQ (12:06)
[2024-10-10] MEDS ORDERED: AZITHROMYCIN 250MG TABLET PO SCH (09:00)
== END 2024-10-09 16:39 | disposition home health service (06) | DRG 189 ==
LOC: M ED 14:57 → EDBD 14:57 → M ED INP 18:36 → M PCU 10-06 04:25 → M MSPAV 10-07 14:28
PROVIDERS: ADMIT Student in an Organized Health Care Education/Training Program; ATTEND Internal Medicine
PROC: B246ZZZ Ultrasonography of Right and Left Heart (ICD-10-PCS; principal; 2024-10-06)
DX: J96.22 Acute and chronic respiratory failure with hypercapnia (principal); J44.1 Chronic obstructive pulmonary disease with (acute) exacerbation; E66.2 Morbid (severe) obesity with alveolar hypoventilation; E87.4 Mixed disorder of acid-base balance; J96.21 Acute and chronic respiratory failure with hypoxia; F90.9 Attention-deficit hyperactivity disorder, unspecified type; G62.9 Polyneuropathy, unspecified; F43.10 Post-traumatic stress disorder, unspecified; E78.5 Hyperlipidemia, unspecified; M54.50 Low back pain, unspecified; G89.29 Other chronic pain; E11.65 Type 2 diabetes mellitus with hyperglycemia; E66.813 Obesity, class 3; R29.6 Repeated falls; T38.0X5A Adverse effect of glucocorticoids and synthetic analogues, initial encounter; F20.9 Schizophrenia, unspecified; N40.0 Benign prostatic hyperplasia without lower urinary tract symptoms; Z79.2 Long term (current) use of antibiotics; Z79.4 Long term (current) use of insulin; Z79.899 Other long term (current) drug therapy; Z88.5 Allergy status to narcotic agent; Z88.6 Allergy status to analgesic agent; Z88.8 Allergy status to other drugs, medicaments and biological substances; Z91.040 Latex allergy status; Z91.51 Personal history of suicidal behavior; Z90.49 Acquired absence of other specified parts of digestive tract; Z87.891 Personal history of nicotine dependence; Z99.81 Dependence on supplemental oxygen; E11.42 Type 2 diabetes mellitus with diabetic polyneuropathy

== ENCOUNTER → 2024-10-25 | Outpatient (REF) | payer OTHER, MEDICARE ==
[~2024-10-25] MED LIST changes: +ATOR40TA75 PO; +D32000TA PO; +FURO40TA2 PO; +HUMA100I5 SC; +LANTINJ4 SC; +SPIR50TA4 PO; +[UNRECOGNIZED DRUG - CODE] SQ
[2024-10-25 18:41] LABS: ALBUMIN 3.5 G/DL (3.2-5.2); ALKALINE PHOSPHATASE 83 U/L (40-129); ALT/SGPT 27 U/L (7.0-40); AST/SGOT 12 U/L (<34); BILIRUBIN,TOTAL 0.2 MG/DL (0.3-1.2); BLOOD UREA NITROGEN 30 MG/DL (9-23); CALCIUM LEVEL 9.4 MG/DL (8.5-10.1); CARBON DIOXIDE LEVEL 36 MMOL/L (20-31); CHLORIDE LEVEL 94 MMOL/L (98-107); CHOLESTEROL LEVEL 230 MG/DL (<200); CHOLESTEROL RISK RATIO 4.69 (<5); CREATININE FOR GFR 1.09 MG/DL (0.70-1.30); GLOMERULAR FILTRATION RATE 78.2 (>56); GLUCOSE, FASTING 213 MG/DL (60-100); POTASSIUM SERUM 4.6 MMOL/L (3.5-5.1); SODIUM LEVEL 138 MMOL/L (136-145); TOTAL PROTEIN 7.1 G/DL (5.7-8.2); TRIGLYCERIDES LEVEL 421 MG/DL (<150)
[2024-10-25 21:48] LABS: HEMOGLOBIN A1c 8.2 % (4.0-6.0)
== END ==
LOC: M LAB REF 17:31
PROVIDERS: ATTEND Nurse Practitioner Family
DX: E66.9 Obesity, unspecified (principal); Z79.899 Other long term (current) drug therapy

== ENCOUNTER 2024-11-06 20:47 | Emergency (ER) | payer MEDICARE, OTHER ==
[~2024-11-06] VITALS: Ht 170.2 cm; Wt 109.1 kg
[~2024-11-06 20:47] MED LIST changes: -BUPR-597 PO; +BUPR-766 PO
[2024-11-06 22:47] LABS: BASO # 0.1 10^3/uL (0.0-0.2); BASO % 0.4 % (0.0-1.0); EOS # 0.1 10^3/uL (0.0-0.5); EOS % 0.7 % (0.0-3.0); HEMATOCRIT 34.5 % (42.0-52.0); HEMOGLOBIN 10.9 g/dl (13.5-17.5); LYMPH % 7.5 % (24.0-44.0); MEAN CORPUSCULAR HEMOGLOBIN 31.1 pg (27.0-33.0); MEAN CORPUSCULAR HGB CONC 31.6 g/dl (32.0-36.5); MEAN CORPUSCULAR VOLUME 98.3 fl (80.0-96.0); MONO # 0.4 10^3/uL (0.0-0.8); MONO % 3.2 % (2.0-8.0); NEUTROPHILS # 11.6 10^3/uL (1.5-8.5); NEUTROPHILS % 86.2 % (36.0-66.0); PLATELET COUNT, AUTOMATED 258 10^3/uL (150-450); RED BLOOD COUNT 3.51 10^6/uL (4.30-6.10); WHITE BLOOD COUNT 13.4 10^3/uL (4.0-10.0)
[2024-11-06 23:03] LABS: D-DIMER QUANT 2.16 ug/mL (<0.5); INR 0.92; PARTIAL THROMBOPLASTIN TIME 26.2 SECONDS (24.8-34.2); PROTHROMBIN TIME 12.7 SECONDS (12.5-14.5)
[2024-11-06 23:19] LABS: CALCIUM LEVEL 8.9 MG/DL (8.5-10.1); CK-MB VALUE MASS 1.1 NG/ML (<3.6); CREATININE FOR GFR 1.02 MG/DL (0.70-1.30); GLOMERULAR FILTRATION RATE 84.7 (>56); MAGNESIUM LEVEL 1.8 MG/DL (1.8-2.4); MB/CK RELATIVE INDEX 1.52 (< OR =4); POTASSIUM SERUM 4.9 MMOL/L (3.5-5.1)
[2024-11-06 23:21] LABS: THYROID STIMULATING HORMONE 2.365 uIU/ML (0.55-4.78)
[2024-11-07] MEDS: ACETAMINOPHEN 500 MG TAB PO ONE (00:10)
[2024-11-07] MEDS ORDERED: ISOVUE-370 76% 100ML VIAL As Ordered ONE (00:53)
[2024-11-07] MEDS ORDERED: FURO40TA2 PO (04:42)
[2024-11-07] MEDS ORDERED: AZIT-10 PO (04:42)
[2024-11-07] MEDS ORDERED: VITA200032 PO (04:42)
[2024-11-07] MEDS ORDERED: MED REC IN PROGRESS XX SCH (04:45)
[2024-11-07 06:16] VITALS: TEMP 97.3; O2SAT 95
[2024-11-07 06:23] VITALS: BP 106/58
== END 2024-11-07 06:54 | disposition home or self-care (01) ==
LOC: M ED 20:47 → EDBD 20:47 → M ED 11-07 06:54
DX: R55 Syncope and collapse (principal); S82.435A Nondisplaced oblique fracture of shaft of left fibula, initial encounter for closed fracture; W19.XXXA Unspecified fall, initial encounter; Y92.9 Unspecified place or not applicable; Y93.9 Activity, unspecified; Y99.9 Unspecified external cause status; E11.9 Type 2 diabetes mellitus without complications; E78.5 Hyperlipidemia, unspecified; J44.9 Chronic obstructive pulmonary disease, unspecified; Z99.81 Dependence on supplemental oxygen; K57.92 Diverticulitis of intestine, part unspecified, without perforation or abscess without bleeding; F41.9 Anxiety disorder, unspecified; F32.A Depression, unspecified; F20.9 Schizophrenia, unspecified; Z86.14 Personal history of Methicillin resistant Staphylococcus aureus infection; N40.0 Benign prostatic hyperplasia without lower urinary tract symptoms; Z87.891 Personal history of nicotine dependence; Z79.4 Long term (current) use of insulin; Z79.899 Other long term (current) drug therapy; Z88.6 Allergy status to analgesic agent; Z88.5 Allergy status to narcotic agent; Z88.8 Allergy status to other drugs, medicaments and biological substances; Z91.040 Latex allergy status
CPT/HCPCS: 70450; 71275; 72125; 73564; 73590; 73610; 73630; 80048; 82550; 82553; 83735; 83880; 84443; 84484; 85025; 85379; 85610; 85730; 93005; 93041; 94760; 99285; Q9967

== ENCOUNTER → 2024-11-13 | Outpatient (CLI) | payer OTHER ==
[~2024-11-13] MED LIST changes: +AZIT-10 PO; +VITA200032 PO
== END ==
LOC: M SOG 07:53
PROVIDERS: ATTEND Physician Assistant
DX: M25.572 Pain in left ankle and joints of left foot (principal); S82.492A Other fracture of shaft of left fibula, initial encounter for closed fracture; X58.XXXA Exposure to other specified factors, initial encounter; Y92.9 Unspecified place or not applicable; Y93.9 Activity, unspecified; Y99.9 Unspecified external cause status

== ENCOUNTER → 2025-01-10 | Outpatient (REF) | payer OTHER ==
[2025-01-10 15:41] LABS: BASO # 0.1 10^3/uL (0.0-0.2); BASO % 0.6 % (0.0-1.0); EOS # 0.1 10^3/uL (0.0-0.5); EOS % 1.3 % (0.0-3.0); LYMPH # 1.4 10^3/uL (1.5-5.0); LYMPH % 15.7 % (24.0-44.0); MONO # 0.6 10^3/uL (0.0-0.8); MONO % 6.6 % (2.0-8.0); NEUTROPHILS # 6.8 10^3/uL (1.5-8.5); NEUTROPHILS % 75.4 % (36.0-66.0); PLATELET COUNT, AUTOMATED 257 10^3/uL (150-450)
[2025-01-10 16:17] LABS: ALT/SGPT 17 U/L (7.0-40); AST/SGOT 15 U/L (<34); CALCIUM LEVEL 8.7 MG/DL (8.5-10.1); CARBON DIOXIDE LEVEL 35 MMOL/L (20-31); CHLORIDE LEVEL 100 MMOL/L (98-107); CHOLESTEROL LEVEL 154 MG/DL (<200); CHOLESTEROL RISK RATIO 4.05 (<5); CREATININE FOR GFR 0.75 MG/DL (0.70-1.30); GLOMERULAR FILTRATION RATE > 90.0 (>56); LDL CHOLESTEROL 92.8 MG/DL (<100); NON-HDL-C 116.0 MG/DL; POTASSIUM SERUM 4.6 MMOL/L (3.5-5.1); SODIUM LEVEL 145 MMOL/L (136-145); TRIGLYCERIDES LEVEL 116 MG/DL (<150)
== END ==
LOC: M SHH 14:21
PROVIDERS: ATTEND Student in an Organized Health Care Education/Training Program
DX: R42 Dizziness and giddiness (principal); E78.5 Hyperlipidemia, unspecified

== ENCOUNTER → 2025-01-17 | Outpatient (REF) | payer OTHER ==
[2025-01-17 14:44] LABS: IRON (FE) 75 UG/DL (65-175)
[2025-01-17 14:47] LABS: PSA SCREENING 1.23 NG/ML (< 4.00)
[2025-01-17 14:52] LABS: VITAMIN B12 LEVEL 441 PG/ML (211-911)
== END ==
LOC: M LAB REF 13:20
PROVIDERS: ATTEND Student in an Organized Health Care Education/Training Program
DX: D64.9 Anemia, unspecified (principal); Z12.5 Encounter for screening for malignant neoplasm of prostate; E11.9 Type 2 diabetes mellitus without complications
CPT/HCPCS: 82607; 82728; 82746; 83540; 85046; G0103

== ENCOUNTER 2025-03-15 15:56 | Emergency (ER) | payer OTHER, MEDICAID ==
[2025-03-15 17:09] VITALS: BP 129/56; TEMP 98
[2025-03-15] MEDS ORDERED: ISOVUE-370 76% 100 ML VIAL As Ordered ONE (17:18)
[2025-03-15 17:40] LABS: BASO # 0.1 10^3/uL (0.0-0.2); BASO % 0.6 % (0.0-1.0); EOS # 0.2 10^3/uL (0.0-0.5); EOS % 1.9 % (0.0-3.0); LYMPH # 1.5 10^3/uL (1.5-5.0); LYMPH % 16.3 % (24.0-44.0); MONO # 0.7 10^3/uL (0.0-0.8); MONO % 7.1 % (2.0-8.0); NEUTROPHILS # 6.9 10^3/uL (1.5-8.5); NEUTROPHILS % 73.6 % (36.0-66.0); PLATELET COUNT, AUTOMATED 256 10^3/uL (150-450)
[2025-03-15 17:44] LABS: ABG BASE EXCESS 6.0 (-2.0-2.0); ABG HCO3 32.6 MMOL/L (22.0-26.0); ABG O2 SATURATION 98.6 % (95.0-99.0); ABG PARTIAL PRESSURE CO2 56.1 mmHg (35.0-45.0); ABG PARTIAL PRESSURE O2 147.4 mmHg (75.0-100.0); ABG STANDARD HCO3 29.9 MMOL/L. (22.0-26.0); ABG TOTAL CO2 34.3 MMOL/L (22.0-29.0); ABG pH (ARTERIAL) 7.382 UNITS (7.350-7.450)
[2025-03-15 17:45] LABS: ALT/SGPT 15 U/L (7.0-40); AST/SGOT 13 U/L (<34); CALCIUM LEVEL 9.7 MG/DL (8.5-10.1); CARBON DIOXIDE LEVEL 35 MMOL/L (20-31); CHLORIDE LEVEL 99 MMOL/L (98-107); CREATININE FOR GFR 1.08 MG/DL (0.70-1.30); GLOMERULAR FILTRATION RATE 79.1 (>56); POTASSIUM SERUM 4.6 MMOL/L (3.5-5.1); SODIUM LEVEL 140 MMOL/L (136-145)
[2025-03-15 17:53] LABS: INR 0.87
[2025-03-15 18:22] LABS: APPEARANCE, URINE CLEAR (CLEAR); BACTERIA, URINE AUTO NEGATIVE (NEGATIVE); BILIRUBIN, URINE AUTO NEGATIVE (NEGATIVE); BLOOD, URINE BLOOD NEGATIVE (NEGATIVE); GLUCOSE, URINE (UA) AUTO NEGATIVE (NEGATIVE); KETONE, URINE AUTO NEGATIVE (NEGATIVE); LEUKOCYTE ESTERASE, URINE AUTO NEGATIVE (NEGATIVE); NITRITE, URINE AUTO NEGATIVE (NEGATIVE); PROTEIN, URINE AUTO NEGATIVE (NEGATIVE); RBC, URINE AUTO 0 /HPF (0-3); SPECIFIC GRAVITY URINE AUTO 1.030 (1.002-1.035); SQUAMOUS EPITHELIAL CELL UR AU 0 /HPF (0-6); UROBILINOGEN, URINE AUTO 0.2 mg/dL (0.0-2.0); WBC, URINE AUTO 0 /HPF (0-3)
[2025-03-15 18:39] VITALS: O2SAT 91
[2025-03-15 21:36] LABS: AMPHETAMINES LEVEL URINE NEGATIVE (NEGATIVE); BARBITURATES URINE NEGATIVE (NEGATIVE); BENZODIAZEPINES URINE NEGATIVE (NEGATIVE); COCAINE METABOLITE URINE NEGATIVE (NEGATIVE); METHADONE URINE NEGATIVE (NEGATIVE); OPIATES URINE NEGATIVE (NEGATIVE); PHENCYCLIDINE URINE NEGATIVE (NEGATIVE)
[2025-03-15 21:44] LABS: CANNABINOIDS URINE POSITIVE (NEGATIVE)
== END 2025-03-15 19:10 | disposition home or self-care (01) ==
LOC: M ED 15:56 → EDBD 15:56 → M ED 19:10
DX: Z04.1 Encounter for examination and observation following transport accident (principal); V00.818A Other accident with wheelchair (powered), initial encounter; Y92.9 Unspecified place or not applicable; Y93.9 Activity, unspecified; Y99.9 Unspecified external cause status; I50.9 Heart failure, unspecified; J44.9 Chronic obstructive pulmonary disease, unspecified; F20.9 Schizophrenia, unspecified; Z79.4 Long term (current) use of insulin; Z79.899 Other long term (current) drug therapy; Z88.6 Allergy status to analgesic agent; Z88.5 Allergy status to narcotic agent; Z91.040 Latex allergy status
CPT/HCPCS: 36600; 70450; 71045; 71260; 72125; 72128; 72131; 74177; 80047; 80048; 80076; 80307; 81001; 82150; 82803; 83605; 83690; 85025; 85610; 85730; 86850; 86900; 86901; 93041; 94760; 99285; Q9967

== ENCOUNTER 2025-04-20 07:57 | Inpatient (IN) | payer OTHER ==
[~2025-04-20] VITALS: Ht 170.2 cm; Wt 103.1 kg
[2025-04-20] VITALS (10 sets, daily range): BP systolic 113–143; BP diastolic 59–76; TEMP 96.8–98; O2SAT 91–98
[~2025-04-20 07:57] MED LIST changes: +LATU20TA PO; +LORA1TAB23 PO; -LUMA42CA PO; +LUMA42CA4 PO
[2025-04-20 08:31] LABS: VENOUS BASE EXCESS 10.6 (-2.0-2.0); VENOUS HCO3 40.6 MMOL/L (23.0-27.0); VENOUS O2 SATURATION 79.3 % (60.0-80.0); VENOUS PARTIAL PRESSURE CO2 84.9 mmHg (38.0-50.0); VENOUS PARTIAL PRESSURE O2 43.9 mmHg (30.0-50.0); VENOUS PH 7.298 UNITS (7.330-7.430); VENOUS STANDARD HCO3 33.9 MMOL/L; VENOUS TOTAL CO2 43.3 MMOL/L (24.0-28.0)
[2025-04-20 08:35] LABS: BASO # 0.1 10^3/uL (0.0-0.2); BASO % 0.6 % (0.0-1.0); EOS # 0.2 10^3/uL (0.0-0.5); EOS % 1.5 % (0.0-3.0); LYMPH # 1.3 10^3/uL (1.5-5.0); LYMPH % 12.3 % (24.0-44.0); MONO # 0.6 10^3/uL (0.0-0.8); MONO % 5.9 % (2.0-8.0); NEUTROPHILS # 8.5 10^3/uL (1.5-8.5); NEUTROPHILS % 79.3 % (36.0-66.0); PLATELET COUNT, AUTOMATED 253 10^3/uL (150-450)
[2025-04-20] MEDS: IPRATROPIUM 0.5 MG/ALBUTEROL 2.5 MG INH SOL UD 3 ML NEB PRN (08:35)
[2025-04-20 09:05] LABS: ALT/SGPT 16 U/L (7.0-40); AST/SGOT 11 U/L (<34); CALCIUM LEVEL 8.9 MG/DL (8.5-10.1); CARBON DIOXIDE LEVEL 38 MMOL/L (20-31); CHLORIDE LEVEL 96 MMOL/L (98-107); CREATININE FOR GFR 0.81 MG/DL (0.70-1.30); GLOMERULAR FILTRATION RATE > 90.0 (>56); POTASSIUM SERUM 4.9 MMOL/L (3.5-5.1); SODIUM LEVEL 142 MMOL/L (136-145)
[2025-04-20 10:13] LABS: ABG BASE EXCESS 9.4 (-2.0-2.0); ABG HCO3 38.9 MMOL/L (22.0-26.0); ABG O2 SATURATION 97.2 % (95.0-99.0); ABG PARTIAL PRESSURE CO2 82.6 mmHg (35.0-45.0); ABG PARTIAL PRESSURE O2 101.9 mmHg (75.0-100.0); ABG STANDARD HCO3 33.1 MMOL/L. (22.0-26.0); ABG TOTAL CO2 41.5 MMOL/L (22.0-29.0); ABG pH (ARTERIAL) 7.291 UNITS (7.350-7.450)
[2025-04-20] MEDS ORDERED: ISOVUE-370 76% 100 ML VIAL As Ordered ONE (10:17)
[2025-04-20] MEDS ORDERED: ATIV1TAB10 PO (11:32)
[2025-04-20] MEDS ORDERED: HOME MED LIST COMPLETE! XX SCH (11:35)
[2025-04-20] MEDS ORDERED: GLUCAGON INJ 1 MG VIAL SC PRN (13:10)
[2025-04-20] MEDS ORDERED: ALBUTEROL SULFATE 2.5 MG/0.5 ML INH CONCENTRATE NEB SOLN NEB PRN (13:10)
[2025-04-20] MEDS ORDERED: DEXTROSE 50% 50 ML SYRINGE IV PRN (13:10)
[2025-04-20] MEDS ORDERED: GLUCOSE 4 GM CHEW PO PRN (13:10)
[2025-04-20] MEDS: LanTUS (INSULIN GLARGINE INJ) 1 UNITS/0.01 ML SC STA (13:36)
[2025-04-20] MEDS: TIOTROPIUM BROM 2.5MCG/ACTUATION 4GM INH INH SCH (14:42)
[2025-04-20] MEDS: IPRATROPIUM 0.5 MG/ALBUTEROL 2.5 MG INH SOL UD 3 ML NEB SCH (14:50)
[2025-04-20] MEDS: LURASIDONE HCL 40 MG TAB PO SCH (16:13)
[2025-04-20] MEDS: buPROPion **XL** 150 MG TABLET PO SCH (16:13)
[2025-04-20] MEDS: AZITHROMYCIN 250 MG TABLET PO SCH (16:14)
[2025-04-20] MEDS: INSULIN LISPRO (NovoLOG) PER UNIT SC SCH ×2 (18:23→21:11)
[2025-04-20] MEDS: BUDESONIDE 0.5 MG/2 ML INHALATION SUSPENSION NEB SCH (18:55)
[2025-04-20 19:09] LABS: ABG BASE EXCESS 7.4 (-2.0-2.0); ABG HCO3 34.4 MMOL/L (22.0-26.0); ABG O2 SATURATION 99.0 % (95.0-99.0); ABG PARTIAL PRESSURE CO2 60.8 mmHg (35.0-45.0); ABG PARTIAL PRESSURE O2 179.6 mmHg (75.0-100.0); ABG STANDARD HCO3 31.2 MMOL/L. (22.0-26.0); ABG TOTAL CO2 36.3 MMOL/L (22.0-29.0); ABG pH (ARTERIAL) 7.371 UNITS (7.350-7.450)
[2025-04-20] MEDS: LORazepam 0.5 MG TAB PO PRN (20:45)
[2025-04-20] MEDS: ATORVASTATIN 20 MG TAB PO SCH (20:46)
[2025-04-20] MEDS: TAMSULOSIN 0.4 MG CAP PO SCH (20:47)
[2025-04-20] MEDS: ENOXAPARIN 40 MG/0.4 ML SYRINGE (J1650 PER 10MG) SC SCH (21:12)
[2025-04-21] VITALS (13 sets, daily range): BP systolic 107–131; BP diastolic 58–67; TEMP 97.1–99.1; O2SAT 92–98
[2025-04-21 08:41] LABS: PLATELET COUNT, AUTOMATED 271 10^3/uL (150-450)
[2025-04-21 09:10] LABS: CALCIUM LEVEL 9.0 MG/DL (8.5-10.1); CARBON DIOXIDE LEVEL 36 MMOL/L (20-31); CHLORIDE LEVEL 94 MMOL/L (98-107); CREATININE FOR GFR 0.81 MG/DL (0.70-1.30); GLOMERULAR FILTRATION RATE > 90.0 (>56); POTASSIUM SERUM 4.4 MMOL/L (3.5-5.1); SODIUM LEVEL 137 MMOL/L (136-145)
[2025-04-21] MEDS: LanTUS (INSULIN GLARGINE INJ) 1 UNITS/0.01 ML SC SCH (09:39)
[2025-04-21] MEDS: guaiFENesin ER TABLET 600 MG TAB PO SCH (12:09)
[2025-04-22 03:32] VITALS: BP 126/80; TEMP 97.7; O2SAT 95
[2025-04-22 05:37] LABS: BASO # 0.0 10^3/uL (0.0-0.2); BASO % 0.1 % (0.0-1.0); EOS # 0.0 10^3/uL (0.0-0.5); EOS % 0.0 % (0.0-3.0); LYMPH # 1.0 10^3/uL (1.5-5.0); LYMPH % 5.4 % (24.0-44.0); MONO # 0.6 10^3/uL (0.0-0.8); MONO % 3.4 % (2.0-8.0); NEUTROPHILS # 16.1 10^3/uL (1.5-8.5); NEUTROPHILS % 90.1 % (36.0-66.0); PLATELET COUNT, AUTOMATED 271 10^3/uL (150-450)
[2025-04-22 06:05] LABS: CALCIUM LEVEL 8.6 MG/DL (8.5-10.1); CARBON DIOXIDE LEVEL 34 MMOL/L (20-31); CHLORIDE LEVEL 97 MMOL/L (98-107); CREATININE FOR GFR 0.82 MG/DL (0.70-1.30); GLOMERULAR FILTRATION RATE > 90.0 (>56); POTASSIUM SERUM 4.7 MMOL/L (3.5-5.1); SODIUM LEVEL 138 MMOL/L (136-145)
[2025-04-22 07:56] VITALS: BP 135/94; TEMP 97.1; O2SAT 95
[2025-04-22 16:19] VITALS: BP 130/65; TEMP 97.6; O2SAT 97
[2025-04-22 19:31] VITALS: BP 139/65; TEMP 98; O2SAT 97
[2025-04-22 23:49] VITALS: BP 98/46; TEMP 97.4; O2SAT 96
[2025-04-23 03:50] VITALS: BP 122/70; TEMP 97.5; O2SAT 96
[2025-04-23 07:36] VITALS: BP 136/78; TEMP 97.2; O2SAT 96
[2025-04-23] MEDS ORDERED: ALBU8.5H INH (12:47)
[2025-04-23] MEDS ORDERED: IPRA0.00 INH (12:47)
[2025-04-23] MEDS: NYSTATIN 100,000 UNITS/GM TOPICAL PWD 15 GM TOP SCH (13:30)
[2025-04-23 15:59] VITALS: BP 130/65; O2SAT 95
[2025-04-23 19:49] VITALS: BP 129/61; TEMP 97.8; O2SAT 97
[2025-04-23] MEDS: predniSONE 20 MG TAB PO SCH (21:03)
[2025-04-24 03:15] VITALS: BP 128/68; TEMP 96.9; O2SAT 94
[2025-04-24 07:46] VITALS: BP 147/79; TEMP 97.3; O2SAT 96
== END 2025-04-24 13:32 | disposition home or self-care (01) | DRG 189 ==
LOC: M ED 07:57 → EDBD 07:57 → M ED INP 13:06 → M PCU 14:26
PROVIDERS: ADMIT Internal Medicine; ATTEND Internal Medicine
DX: J96.22 Acute and chronic respiratory failure with hypercapnia (principal); J44.1 Chronic obstructive pulmonary disease with (acute) exacerbation; E87.29 Other acidosis; E66.2 Morbid (severe) obesity with alveolar hypoventilation; J96.21 Acute and chronic respiratory failure with hypoxia; Z99.81 Dependence on supplemental oxygen; F25.9 Schizoaffective disorder, unspecified; F90.9 Attention-deficit hyperactivity disorder, unspecified type; E11.65 Type 2 diabetes mellitus with hyperglycemia; F12.90 Cannabis use, unspecified, uncomplicated; T38.0X5A Adverse effect of glucocorticoids and synthetic analogues, initial encounter; E78.5 Hyperlipidemia, unspecified; N40.0 Benign prostatic hyperplasia without lower urinary tract symptoms; M54.9 Dorsalgia, unspecified; G89.29 Other chronic pain; F17.200 Nicotine dependence, unspecified, uncomplicated; Z79.4 Long term (current) use of insulin; Z79.2 Long term (current) use of antibiotics; Z79.899 Other long term (current) drug therapy; Z88.5 Allergy status to narcotic agent; Z88.6 Allergy status to analgesic agent; Z88.8 Allergy status to other drugs, medicaments and biological substances; Z91.040 Latex allergy status

== ENCOUNTER 2025-05-03 16:37 | Inpatient (IN) | payer OTHER ==
[~2025-05-03] VITALS: Ht 170.2 cm; Wt 106.0 kg
[~2025-05-03 16:37] MED LIST changes: +ATIV1TAB10 PO; +IPRA0.00 INH
[2025-05-03 17:05] LABS: BASO # 0.0 10^3/uL (0.0-0.2); BASO % 0.3 % (0.0-1.0); EOS # 0.0 10^3/uL (0.0-0.5); EOS % 0.2 % (0.0-3.0); LYMPH # 0.8 10^3/uL (1.5-5.0); LYMPH % 4.9 % (24.0-44.0); MONO # 0.3 10^3/uL (0.0-0.8); MONO % 2.1 % (2.0-8.0); NEUTROPHILS # 14.0 10^3/uL (1.5-8.5); NEUTROPHILS % 91.5 % (36.0-66.0); PLATELET COUNT, AUTOMATED 245 10^3/uL (150-450)
[2025-05-03 17:30] LABS: ALT/SGPT 24 U/L (7.0-40); AST/SGOT 15 U/L (<34); CALCIUM LEVEL 9.2 MG/DL (8.3-10.6); CARBON DIOXIDE LEVEL 39 MMOL/L (20-31); CHLORIDE LEVEL 93 MMOL/L (98-107); CREATININE FOR GFR 1.10 MG/DL (0.70-1.30); GLOMERULAR FILTRATION RATE 76.9 (>49); POTASSIUM SERUM 5.7 MMOL/L (3.5-5.1); SODIUM LEVEL 138 MMOL/L (136-145)
[2025-05-03 18:10] LABS: ABG BASE EXCESS 11.1 (-2.0-2.0); ABG HCO3 40.1 MMOL/L (22.0-26.0); ABG O2 SATURATION 96.5 % (95.0-99.0); ABG PARTIAL PRESSURE CO2 77.9 mmHg (35.0-45.0); ABG PARTIAL PRESSURE O2 86.4 mmHg (75.0-100.0); ABG STANDARD HCO3 34.8 MMOL/L. (22.0-26.0); ABG TOTAL CO2 42.4 MMOL/L (23.0-31.0); ABG pH (ARTERIAL) 7.329 UNITS (7.350-7.450)
[2025-05-03] MEDS: IPRATROPIUM 0.5 MG/ALBUTEROL 2.5 MG INH SOL UD 3 ML NEB ONE (18:11)
[2025-05-03] MEDS: ALBUTEROL SULFATE 2.5 MG/0.5 ML INH CONCENTRATE NEB SOLN INH ONE (18:11)
[2025-05-03] MEDS ORDERED: ONDANSETRON 4MG/2ML VIAL IV PRN (19:05)
[2025-05-03] MEDS ORDERED: MOM 30 ML SUSPENSION UDC PO PRN (19:05)
[2025-05-03] MEDS ORDERED: ACETAMINOPHEN 325 MG TAB PO PRN (19:05)
[2025-05-03] MEDS ORDERED: GLUCAGON INJ 1 MG VIAL SC PRN (19:30)
[2025-05-03] MEDS ORDERED: DEXTROSE 50% 50 ML SYRINGE IV PRN (19:30)
[2025-05-03] MEDS ORDERED: GLUCOSE 4 GM CHEW PO PRN (19:30)
[2025-05-03] MEDS: IPRATROPIUM 0.5 MG/ALBUTEROL 2.5 MG INH SOL UD 3 ML NEB SCH (20:00)
[2025-05-03 21:30] VITALS: BP 106/73; TEMP 97.3; O2SAT 92
[2025-05-04] MEDS ORDERED: HOME MED LIST COMPLETE! XX SCH (00:15)
[2025-05-04 04:46] VITALS: BP 121/71; TEMP 98.1; O2SAT 97
[2025-05-04 07:49] LABS: PLATELET COUNT, AUTOMATED 273 10^3/uL (150-450)
[2025-05-04] MEDS: buPROPion **XL** 150 MG TABLET PO SCH (07:51)
[2025-05-04] MEDS: ENOXAPARIN 40 MG/0.4 ML SYRINGE (J1650 PER 10MG) SC SCH (07:52)
[2025-05-04] MEDS: PANTOPRAZOLE 40MG TAB PO SCH (07:52)
[2025-05-04] MEDS ORDERED: LURASIDONE HCL 40 MG TAB PO SCH (08:00)
[2025-05-04 08:09] LABS: ABG BASE EXCESS 9.2 (-2.0-2.0); ABG HCO3 36.6 MMOL/L (22.0-26.0); ABG O2 SATURATION 96.5 % (95.0-99.0); ABG PARTIAL PRESSURE CO2 63.2 mmHg (35.0-45.0); ABG PARTIAL PRESSURE O2 83.4 mmHg (75.0-100.0); ABG STANDARD HCO3 33.0 MMOL/L. (22.0-26.0); ABG TOTAL CO2 38.6 MMOL/L (23.0-31.0); ABG pH (ARTERIAL) 7.381 UNITS (7.350-7.450)
[2025-05-04 08:24] LABS: ALT/SGPT 22 U/L (7.0-40); AST/SGOT 11 U/L (<34); CALCIUM LEVEL 9.4 MG/DL (8.3-10.6); CARBON DIOXIDE LEVEL 38 MMOL/L (20-31); CHLORIDE LEVEL 92 MMOL/L (98-107); CREATININE FOR GFR 0.77 MG/DL (0.70-1.30); GLOMERULAR FILTRATION RATE > 90.0 (>49); MAGNESIUM LEVEL 1.9 MG/DL (1.8-2.4); POTASSIUM SERUM 4.9 MMOL/L (3.5-5.1); SODIUM LEVEL 139 MMOL/L (136-145)
[2025-05-04 08:29] LABS: BASO # 0.0 10^3/uL (0.0-0.2); BASO % 0.1 % (0.0-1.0); EOS # 0.0 10^3/uL (0.0-0.5); EOS % 0.0 % (0.0-3.0); LYMPH # 0.7 10^3/uL (1.5-5.0); LYMPH % 3.0 % (24.0-44.0); MONO # 0.2 10^3/uL (0.0-0.8); MONO % 0.7 % (2.0-8.0); NEUTROPHILS # 23.7 10^3/uL (1.5-8.5); NEUTROPHILS % 95.1 % (36.0-66.0); PLATELET COUNT, AUTOMATED 265 10^3/uL (150-450)
[2025-05-04 08:58] LABS: CALCIUM LEVEL 9.4 MG/DL (8.3-10.6); CARBON DIOXIDE LEVEL 38 MMOL/L (20-31); CHLORIDE LEVEL 91 MMOL/L (98-107); CREATININE FOR GFR 0.77 MG/DL (0.70-1.30); GLOMERULAR FILTRATION RATE > 90.0 (>49); POTASSIUM SERUM 5.0 MMOL/L (3.5-5.1); SODIUM LEVEL 139 MMOL/L (136-145)
[2025-05-04] MEDS ORDERED: DEXTROSE 50% 50 ML SYRINGE IV PRN (11:05)
[2025-05-04] MEDS: HumuLIN R (REGULAR) INSULIN (NovoLIN R) **100 U/ML** PER UNIT IV STA ×2 (11:14→14:02)
[2025-05-04 11:45] VITALS: BP 117/67; TEMP 97; O2SAT 94
[2025-05-04] MEDS: INSULIN LISPRO (NovoLOG) PER UNIT SC SCH ×2 (12:55→21:01)
[2025-05-04] MEDS: LORazepam 0.5 MG TAB PO PRN (17:22)
[2025-05-04] MEDS: BUDESONIDE 0.5 MG/2 ML INHALATION SUSPENSION NEB SCH (19:58)
[2025-05-04 20:36] VITALS: BP 108/51; TEMP 97.5; O2SAT 92
[2025-05-04] MEDS ORDERED: ENTER DRUG NAME HERE (PATIENT'S OWN MED) PO SCH (21:00)
[2025-05-04] MEDS ORDERED: TAMSULOSIN 0.4 MG CAP PO SCH (21:00)
[2025-05-04] MEDS: TAMSULOSIN 0.4 MG CAP PO SCH (21:01)
[2025-05-04] MEDS: ATORVASTATIN 20 MG TAB PO SCH (21:01)
[2025-05-04] MEDS: traZODone 50 MG TAB PO PRN (21:10)
[2025-05-05 04:08] VITALS: BP 96/56; TEMP 97.3; O2SAT 91
[2025-05-05] MEDS ORDERED: predniSONE 20 MG TAB PO SCH (09:00)
[2025-05-05 09:28] LABS: ESTIMATED AVERAGE GLUCOSE 197.0 MG/DL (60-110)
[2025-05-05 09:41] LABS: CALCIUM LEVEL 8.9 MG/DL (8.3-10.6); CARBON DIOXIDE LEVEL 38 MMOL/L (20-31); CHLORIDE LEVEL 95 MMOL/L (98-107); CREATININE FOR GFR 0.91 MG/DL (0.70-1.30); GLOMERULAR FILTRATION RATE > 90.0 (>49); MAGNESIUM LEVEL 1.8 MG/DL (1.8-2.4); POTASSIUM SERUM 4.4 MMOL/L (3.5-5.1); SODIUM LEVEL 140 MMOL/L (136-145)
[2025-05-05] MEDS: predniSONE 20 MG TAB PO SCH (09:42)
[2025-05-05] MEDS: INSULIN LISPRO (NovoLOG) PER UNIT SC SCH (09:42)
[2025-05-05 11:49] VITALS: BP 101/64; TEMP 97.3; O2SAT 92
[2025-05-05] MEDS: IPRATROPIUM 0.5 MG/ALBUTEROL 2.5 MG INH SOL UD 3 ML NEB PRN (13:34)
[2025-05-05 21:38] VITALS: BP 102/58; TEMP 97; O2SAT 91
[2025-05-06 04:05] VITALS: BP 118/70; TEMP 97.3; O2SAT 94
[2025-05-06 06:13] LABS: PLATELET COUNT, AUTOMATED 191 10^3/uL (150-450)
[2025-05-06 06:47] LABS: CALCIUM LEVEL 8.3 MG/DL (8.3-10.6); CARBON DIOXIDE LEVEL 38 MMOL/L (20-31); CHLORIDE LEVEL 97 MMOL/L (98-107); CREATININE FOR GFR 0.94 MG/DL (0.70-1.30); GLOMERULAR FILTRATION RATE > 90.0 (>49); MAGNESIUM LEVEL 1.9 MG/DL (1.8-2.4); POTASSIUM SERUM 4.3 MMOL/L (3.5-5.1); SODIUM LEVEL 140 MMOL/L (136-145)
[2025-05-06] MEDS: AZITHROMYCIN 250 MG TABLET PO SCH (08:44)
[2025-05-06 11:38] VITALS: BP 109/62; TEMP 97.9; O2SAT 91
[2025-05-06] MEDS: guaiFENesin DM *SUGAR FREE* 5 ML ORALSYRG PO ONE (15:59)
[2025-05-06] MEDS ORDERED: guaiFENesin DM *SUGAR FREE* 5 ML ORALSYRG PO PRN (18:00)
[2025-05-06 20:47] VITALS: BP 115/62; TEMP 96.8; O2SAT 93
[2025-05-07 03:49] VITALS: BP 110/67; TEMP 97.5; O2SAT 92
[2025-05-07 07:10] LABS: CALCIUM LEVEL 9.2 MG/DL (8.3-10.6); CARBON DIOXIDE LEVEL 36 MMOL/L (20-31); CHLORIDE LEVEL 98 MMOL/L (98-107); CREATININE FOR GFR 0.87 MG/DL (0.70-1.30); GLOMERULAR FILTRATION RATE > 90.0 (>49); MAGNESIUM LEVEL 1.9 MG/DL (1.8-2.4); POTASSIUM SERUM 4.5 MMOL/L (3.5-5.1); SODIUM LEVEL 141 MMOL/L (136-145)
[2025-05-07 12:54] VITALS: BP 118/72; TEMP 97; O2SAT 92
[2025-05-07] MEDS ORDERED: PRED20TA PO (13:01)
[2025-05-07] MEDS ORDERED: MIRA3350 PO (13:01)
[2025-05-07] MEDS ORDERED: SENN-186 PO (13:01)
== END 2025-05-07 14:22 | disposition home or self-care (01) | DRG 191 ==
LOC: M ED 16:37 → M ED INP 19:03 → M MSPAV 21:30
PROVIDERS: ADMIT Internal Medicine; ATTEND Student in an Organized Health Care Education/Training Program
DX: J44.1 Chronic obstructive pulmonary disease with (acute) exacerbation (principal); J96.11 Chronic respiratory failure with hypoxia; B34.8 Other viral infections of unspecified site; Z99.81 Dependence on supplemental oxygen; F20.9 Schizophrenia, unspecified; F90.9 Attention-deficit hyperactivity disorder, unspecified type; E11.65 Type 2 diabetes mellitus with hyperglycemia; T38.0X5A Adverse effect of glucocorticoids and synthetic analogues, initial encounter; E78.5 Hyperlipidemia, unspecified; N40.0 Benign prostatic hyperplasia without lower urinary tract symptoms; M54.9 Dorsalgia, unspecified; G47.00 Insomnia, unspecified; G89.29 Other chronic pain; Z87.891 Personal history of nicotine dependence; Z79.2 Long term (current) use of antibiotics; Z79.4 Long term (current) use of insulin; Z79.52 Long term (current) use of systemic steroids; Z79.899 Other long term (current) drug therapy; Z88.6 Allergy status to analgesic agent; Z88.5 Allergy status to narcotic agent; Z88.8 Allergy status to other drugs, medicaments and biological substances; Z91.040 Latex allergy status

== ENCOUNTER 2025-06-26 00:57 | Observation (INO) | payer OTHER ==
[~2025-06-26] VITALS: Ht 170.2 cm; Wt 103.5 kg
[~2025-06-26 00:57] MED LIST changes: +MIRA3350 PO; +SENN-186 PO
[2025-06-26 01:26] LABS: BASO # 0.1 10^3/uL (0.0-0.2); BASO % 0.7 % (0.0-1.0); EOS # 0.3 10^3/uL (0.0-0.5); EOS % 2.4 % (0.0-3.0); LYMPH # 2.6 10^3/uL (1.5-5.0); LYMPH % 21.4 % (24.0-44.0); MONO # 0.8 10^3/uL (0.0-0.8); MONO % 6.8 % (2.0-8.0); NEUTROPHILS # 8.2 10^3/uL (1.5-8.5); NEUTROPHILS % 68.2 % (36.0-66.0); PLATELET COUNT, AUTOMATED 281 10^3/uL (150-450)
[2025-06-26 01:50] LABS: ALT/SGPT 16 U/L (7.0-40); AST/SGOT 18 U/L (<34); CALCIUM LEVEL 8.8 MG/DL (8.3-10.6); CARBON DIOXIDE LEVEL 35 MMOL/L (20-31); CHLORIDE LEVEL 99 MMOL/L (98-107); CREATININE FOR GFR 0.89 MG/DL (0.70-1.30); GLOMERULAR FILTRATION RATE > 90.0 (>49); POTASSIUM SERUM 4.5 MMOL/L (3.5-5.1); SODIUM LEVEL 141 MMOL/L (136-145)
[2025-06-26] MEDS: IPRATROPIUM 0.5 MG/ALBUTEROL 2.5 MG INH SOL UD 3 ML NEB ONE ×2 (02:24)
[2025-06-26] MEDS: ALBUTEROL SULFATE 2.5 MG/0.5 ML INH CONCENTRATE NEB SOLN NEB SCH (03:23)
[2025-06-26 03:30] LABS: CK-MB VALUE MASS 2.0 NG/ML (<3.6)
[2025-06-26 03:33] LABS: CPK CREATINE PHOSPHOKINASE 72 U/L (46-171); MB/CK RELATIVE INDEX 2.77 (< OR =4)
[2025-06-26 05:32] VITALS: O2SAT 95
[2025-06-26] MEDS ORDERED: GLUCOSE 4 GM CHEW PO PRN (07:35)
[2025-06-26] MEDS ORDERED: DEXTROSE 50% 50 ML SYRINGE IV PRN (07:35)
[2025-06-26] MEDS ORDERED: ACETAMINOPHEN 325 MG TAB PO PRN (07:35)
[2025-06-26] MEDS ORDERED: GLUCAGON INJ 1 MG VIAL SC PRN (07:35)
[2025-06-26] MEDS: IPRATROPIUM 0.5 MG/ALBUTEROL 2.5 MG INH SOL UD 3 ML INH SCH (08:00)
[2025-06-26] MEDS ORDERED: PRAZ1CAP PO (08:08)
[2025-06-26] MEDS ORDERED: IPRA0.00 INH (08:08)
[2025-06-26] MEDS ORDERED: LUMA42CA4 PO (08:08)
[2025-06-26] MEDS ORDERED: HOME MED LIST COMPLETE! XX SCH (08:10)
[2025-06-26] MEDS: predniSONE 20 MG TAB PO SCH (09:11)
[2025-06-26] MEDS: buPROPion **XL** 150 MG TABLET PO SCH (09:11)
[2025-06-26] MEDS: AZITHROMYCIN 250 MG TABLET PO SCH (09:11)
[2025-06-26] MEDS: TAMSULOSIN 0.4 MG CAP PO SCH ×2 (09:46→20:28)
[2025-06-26] MEDS: SYMBICORT 160/4.5MCG INHALER 6GM INH SCH (13:25)
[2025-06-26] MEDS: INSULIN LISPRO (NovoLOG) PER UNIT SC SCH ×2 (13:31→20:34)
[2025-06-26 14:15] VITALS: BP 161/71; TEMP 97.2; O2SAT 93
[2025-06-26] MEDS: TIOTROPIUM BROM 2.5MCG/ACTUATION 4GM INH INH SCH (15:40)
[2025-06-26 20:00] VITALS: BP 129/73; TEMP 97.9; O2SAT 96
[2025-06-26] MEDS: ATORVASTATIN 20 MG TAB PO SCH (20:28)
[2025-06-26 20:29] VITALS: BP 129/73
[2025-06-26] MEDS: PRAZOSIN 1 MG CAP PO SCH (20:29)
[2025-06-26] MEDS ORDERED: ENTER DRUG NAME HERE (PATIENT'S OWN MED) PO SCH (21:00)
[2025-06-26] MEDS ORDERED: TAMSULOSIN 0.4 MG CAP PO SCH (21:00)
[2025-06-27 07:59] LABS: PLATELET COUNT, AUTOMATED 242 10^3/uL (150-450)
[2025-06-27 08:05] VITALS: BP 129/73; TEMP 97.9; O2SAT 96
[2025-06-27 08:21] LABS: CALCIUM LEVEL 8.1 MG/DL (8.3-10.6); CARBON DIOXIDE LEVEL 34 MMOL/L (20-31); CHLORIDE LEVEL 99 MMOL/L (98-107); CREATININE FOR GFR 0.72 MG/DL (0.70-1.30); GLOMERULAR FILTRATION RATE > 90.0 (>49); POTASSIUM SERUM 4.3 MMOL/L (3.5-5.1); SODIUM LEVEL 139 MMOL/L (136-145)
[2025-06-27] MEDS: LORazepam 0.5 MG TAB PO PRN (08:24)
[2025-06-27] MEDS ORDERED: PRED20TA PO (09:30)
[2025-06-27 12:20] VITALS: BP 117/68; TEMP 98.4; O2SAT 96
== END 2025-06-27 13:42 | disposition home health service (06) ==
LOC: M ED 00:57 → EDBD 00:57 → M ED INP 00:58 → UNDOADMOB 07:34 → M MS4PR 14:10
PROVIDERS: ADMIT Internal Medicine; ATTEND Internal Medicine
DX: J44.1 Chronic obstructive pulmonary disease with (acute) exacerbation (principal); J96.11 Chronic respiratory failure with hypoxia; Z99.81 Dependence on supplemental oxygen; F90.9 Attention-deficit hyperactivity disorder, unspecified type; F32.A Depression, unspecified; E11.9 Type 2 diabetes mellitus without complications; E78.5 Hyperlipidemia, unspecified; N40.0 Benign prostatic hyperplasia without lower urinary tract symptoms; F20.9 Schizophrenia, unspecified; M54.9 Dorsalgia, unspecified; G89.29 Other chronic pain; Z79.2 Long term (current) use of antibiotics; Z79.4 Long term (current) use of insulin; Z79.899 Other long term (current) drug therapy; Z88.5 Allergy status to narcotic agent; Z88.6 Allergy status to analgesic agent; Z88.8 Allergy status to other drugs, medicaments and biological substances; Z91.040 Latex allergy status
CPT/HCPCS: 71045; 80048; 80076; 82550; 82553; 83880; 84484; 85025; 85027; 87486; 87581; 87633; 87798; 93005; 93041; 94640; 94760; 96374; 99285; G0378; J1100; J1815; J7512